=== PATIENT | male | born 1985 | race African-American/Black ===

== ENCOUNTER 2016-09-18 11:46 | Inpatient (IN) | payer MEDICAID, OTHER ==
[~2016-09-18] VITALS: Ht 175.3 cm; Wt 88.9 kg
[~2016-09-18 11:46] MED LIST: BUSP10TA23 PO; BUSP5TAB20 PO; NICO14T TD; OLAN10TA22 PO; OLAN10TA6 PO
[2016-09-18] MEDS ORDERED: QUET25TA PO (12:24)
[2016-09-18 12:46] LABS: BASOPHILS % (AUTO) 0.3 % (0.0-2.0); EOSINOPHILS % (AUTO) 1.1 % (1.0-6.0); HEMATOCRIT 39.8 % (41-53); HEMOGLOBIN 13.2 g/dL (13.5-17.5); LYMPHOCYTES # (AUTO) 2.7 K/uL (1.0-4.8); LYMPHOCYTES % (AUTO) 34.4 % (22.0-44.0); MEAN CORPUSCULAR HEMOGLOBIN 28.5 pg (26.0-34.0); MEAN CORPUSCULAR HGB CONC 33.2 G/dL (31.0-37.0); MEAN CORPUSCULAR VOLUME 86 fL (80-100); MONOCYTES # (AUTO) 0.7 K/uL (0.1-1.0); MONOCYTES % (AUTO) 9.2 % (2.0-9.0); NEUTROPHILS # (AUTO) 4.3 K/uL (1.8-7.7); PLATELET COUNT (AUTO) 223 K/uL (150-450); RED BLOOD CELL COUNT(AUTO) 4.64 MIL/uL (4.50-5.90); RED CELL DISTRIBUTION WIDTH 13.9 % (11.5-14.5); WHITE BLOOD COUNT (AUTO) 7.8 K/uL (4.5-11.0)
[2016-09-18 12:50] LABS: ANION GAP 7 mmol/L (8-16); CALCIUM, TOTAL 8.7 mg/dL (8.8-10.5); CARBON DIOXIDE 29 mmol/L (22-29); CHLORIDE 99 mmol/L (98-107); CREATININE 0.93 mg/dL (0.60-1.30); GLOMERULAR FILTR. RATE CALC > 60 mL/min (>60); POTASSIUM 3.8 mmol/L (3.5-5.1); SODIUM SERUM 135 mmol/L (136-145); UREA NITROGEN, BLOOD 9 mg/dL (7-18)
[2016-09-18 12:56] LABS: ALANINE AMINOTRANSFERASE 59 U/L (12-78); ALBUMIN 3.8 g/dL (3.4-5.0); ASPARTATE AMINOTRANSFERASE 103 U/L (15-37); TOTAL PROTEIN, SERUM 7.3 g/dL (6.4-8.2)
[2016-09-18] MEDS ORDERED: LORazepam 2 MG/ML VIAL IM ONE (13:15)
[2016-09-18] MEDS ORDERED: HALOPERIDOL 5 MG TABLET PO PRN (13:30)
[2016-09-18] MEDS ORDERED: INFLUENZA VIRUS VACCINE QVS 2016-17 (3YR+)/PF 60 MCG/0.5 ML SYRINGE IM ONE (18:15)
[2016-09-18 19:19] VITALS: BP 131/73
[2016-09-19 08:52] VITALS: BP 114/70
[2016-09-19] MEDS: LORazepam 2 MG TABLET PO PRN ×2 (09:24→20:23)
[2016-09-19] MEDS ORDERED: OLAN10TA3 PO (10:23)
[2016-09-19] MEDS ORDERED: BACITRACIN 28.4 GM OINTMENT TP PRN (10:30)
[2016-09-19] MEDS ORDERED: ACETAMINOPHEN 325 MG TABLET PO PRN (10:30)
[2016-09-19] MEDS ORDERED: MAG HYDROX/AL HYDROX/SIMETH ES 30 ML SUSPENSION UDCUP PO PRN (10:30)
[2016-09-19] MEDS ORDERED: ONDANSETRON HCL 4 MG TABLET PO PRN (10:30)
[2016-09-19] MEDS ORDERED: CloNIDine HCL 0.1 MG TABLET PO PRN (10:30)
[2016-09-19] MEDS ORDERED: MAGNESIUM HYDROXIDE SUSPENSION 30 ML UDCUP PO PRN (10:30)
[2016-09-19] MEDS ORDERED: PETROLATUM,WHITE 71 GM JELLY TP PRN (10:30)
[2016-09-19] MEDS ORDERED: IBUPROFEN 600 MG TABLET PO PRN (10:30)
[2016-09-19] MEDS ORDERED: LOPERAMIDE HCL 2 MG CAPSULE PO PRN (10:30)
[2016-09-19 16:02] VITALS: BP 112/70
[2016-09-19] MEDS: OLANZapine 10 MG TABLET PO SCH (20:23)
[2016-09-20 01:08] VITALS: BP 115/73
[2016-09-20 09:39] VITALS: BP 123/76
[2016-09-20] MEDS: LORazepam 2 MG TABLET PO PRN (09:49)
[2016-09-20 16:30] VITALS: BP 131/78
[2016-09-20] MEDS: OLANZapine 10 MG TABLET PO SCH (20:01)
[2016-09-21 06:59] VITALS: BP 123/69
[2016-09-21 08:01] VITALS: BP 126/69
[2016-09-21] MEDS: LORazepam 2 MG TABLET PO PRN (08:33)
[2016-09-21] MEDS ORDERED: LORazepam 2 MG/ML VIAL IM ONE (14:45)
[2016-09-21 16:01] VITALS: BP 120/71
[2016-09-21] MEDS: OLANZapine 10 MG TABLET PO SCH (20:21)
[2016-09-22 08:19] VITALS: BP 111/63
[2016-09-22] MEDS ORDERED: LORazepam 2 MG/ML VIAL ONE (11:47)
[2016-09-22] MEDS ORDERED: DiphenhydrAMINE HCL 50 MG/ML VIAL IM ONE (12:00)
[2016-09-22] MEDS ORDERED: LORazepam 2 MG/ML VIAL IM ONE (12:00)
[2016-09-22] MEDS ORDERED: HALOPERIDOL LACTATE 5 MG/ML VIAL IM ONE (12:00)
[2016-09-22 13:30] VITALS: BP 128/73
[2016-09-22 16:01] VITALS: BP 121/67
[2016-09-22] MEDS: LORazepam 2 MG TABLET PO PRN (16:21)
[2016-09-22] MEDS: OLANZapine 10 MG TABLET PO SCH (20:18)
[2016-09-23 06:55] VITALS: BP 104/67
[2016-09-23 08:30] VITALS: BP 108/69
[2016-09-23] MEDS: LORazepam 2 MG TABLET PO PRN ×3 (09:09→17:33)
[2016-09-23 16:00] VITALS: BP 110/60
[2016-09-23 17:32] VITALS: BP 116/70
[2016-09-23] MEDS: OLANZapine 10 MG TABLET PO SCH (20:03)
[2016-09-24 06:53] VITALS: BP 111/73
[2016-09-24 08:30] VITALS: BP 105/70
[2016-09-24] MEDS: HALOPERIDOL 5 MG TABLET PO PRN ×2 (11:28→17:03)
[2016-09-24] MEDS: LORazepam 2 MG TABLET PO PRN ×2 (11:28→17:02)
[2016-09-24 16:32] VITALS: BP 124/66
[2016-09-24] MEDS: OLANZapine 10 MG TABLET PO SCH (20:48)
[2016-09-25 01:18] VITALS: BP 120/61
[2016-09-25] MEDS: BENZOCAINE/MENTHOL LOZENGE MM PRN (06:50)
[2016-09-25 08:22] VITALS: BP 111/64
[2016-09-25] MEDS: LORazepam 2 MG TABLET PO PRN (08:44)
[2016-09-25] MEDS: HALOPERIDOL 5 MG TABLET PO PRN (10:24)
[2016-09-25] MEDS ORDERED: LORazepam 2 MG/ML VIAL ONE (10:54)
[2016-09-25] MEDS ORDERED: DiphenhydrAMINE HCL 50 MG/ML VIAL ONE (10:54)
[2016-09-25] MEDS ORDERED: HALOPERIDOL LACTATE 5 MG/ML VIAL ONE (10:54)
[2016-09-25] MEDS ORDERED: DiphenhydrAMINE HCL 50 MG/ML VIAL IM ONE (11:00)
[2016-09-25] MEDS ORDERED: LORazepam 2 MG/ML VIAL IM ONE (11:00)
[2016-09-25] MEDS ORDERED: HALOPERIDOL LACTATE 5 MG/ML VIAL IM ONE (11:00)
[2016-09-25 16:00] VITALS: BP 114/65
[2016-09-25] MEDS: PALIPERIDONE PALMITATE 234 MG/1.5 ML SYRINGE IM SCH (17:31)
[2016-09-25] MEDS: OLANZapine 10 MG TABLET PO SCH (20:10)
[2016-09-26] MEDS: HALOPERIDOL 5 MG TABLET PO PRN ×2 (05:44→13:05)
[2016-09-26] MEDS: LORazepam 2 MG TABLET PO PRN ×3 (05:44→17:07)
[2016-09-26 05:45] VITALS: BP 129/78
[2016-09-26 16:30] VITALS: BP 156/88
[2016-09-26] MEDS: OLANZapine 10 MG TABLET PO SCH (20:08)
[2016-09-27 06:03] VITALS: BP 112/77
[2016-09-27 08:15] VITALS: BP 124/79
[2016-09-27] MEDS: LORazepam 2 MG TABLET PO PRN ×3 (08:17→17:46)
[2016-09-27] MEDS ORDERED: LORazepam 2 MG/ML VIAL ONE (08:26)
[2016-09-27] MEDS ORDERED: DiphenhydrAMINE HCL 50 MG/ML VIAL ONE (08:26)
[2016-09-27] MEDS ORDERED: LORazepam 2 MG/ML VIAL IM ONE (08:30)
[2016-09-27] MEDS ORDERED: DiphenhydrAMINE HCL 50 MG/ML VIAL IM ONE (08:30)
[2016-09-27 16:11] VITALS: BP_SYST 118; BP_DIAS 65; BP_DIAS 68
[2016-09-27] MEDS: OLANZapine 10 MG TABLET PO SCH (20:03)
[2016-09-28 06:35] VITALS: BP 125/77
[2016-09-28 08:50] VITALS: BP 123/71
[2016-09-28] MEDS: LORazepam 2 MG TABLET PO PRN ×2 (09:09→16:05)
[2016-09-28] MEDS: HALOPERIDOL 5 MG TABLET PO PRN ×2 (09:09→16:26)
[2016-09-28 16:00] VITALS: BP 128/85
[2016-09-28] MEDS: OLANZapine 10 MG TABLET PO SCH (20:13)
[2016-09-28] MEDS: ZOLPIDEM TARTRATE 10 MG TABLET PO PRN (21:00)
[2016-09-29 06:51] VITALS: BP 120/77
[2016-09-29 08:04] VITALS: BP 118/74
[2016-09-29] MEDS ORDERED: LORazepam 2 MG/ML VIAL IM ONE (09:00)
[2016-09-29] MEDS ORDERED: DiphenhydrAMINE HCL 50 MG/ML VIAL IM ONE (09:00)
[2016-09-29] MEDS ORDERED: HALOPERIDOL LACTATE 5 MG/ML VIAL IM ONE (09:00)
[2016-09-29] MEDS: LORazepam 2 MG TABLET PO PRN ×2 (09:28→16:24)
[2016-09-29] MEDS: HALOPERIDOL 5 MG TABLET PO PRN (09:29)
[2016-09-29 16:06] VITALS: BP 122/68
[2016-09-29] MEDS: HALOPERIDOL 5 MG TABLET PO SCH (20:06)
[2016-09-29] MEDS: OLANZapine 10 MG TABLET PO SCH (20:06)
[2016-09-30 05:35] VITALS: BP 130/78
[2016-09-30 08:01] VITALS: BP 123/73
[2016-09-30] MEDS: HALOPERIDOL 5 MG TABLET PO PRN ×2 (09:14→14:33)
[2016-09-30] MEDS: LORazepam 2 MG TABLET PO PRN ×3 (09:14→18:33)
[2016-09-30 16:17] VITALS: BP 129/84
[2016-09-30] MEDS: BENZOCAINE/MENTHOL LOZENGE MM PRN (16:49)
[2016-09-30] MEDS: OLANZapine 10 MG TABLET PO SCH (20:06)
[2016-09-30] MEDS: HALOPERIDOL 5 MG TABLET PO SCH (20:06)
[2016-10-01 06:23] VITALS: BP 128/78
[2016-10-01] MEDS: HALOPERIDOL 5 MG TABLET PO PRN (07:57)
[2016-10-01] MEDS: LORazepam 2 MG TABLET PO PRN ×2 (07:57→16:40)
[2016-10-01 08:01] VITALS: BP 122/88
[2016-10-01] MEDS ORDERED: DiphenhydrAMINE HCL 50 MG/ML VIAL IM ONE (10:45)
[2016-10-01] MEDS ORDERED: LORazepam 2 MG/ML VIAL IM ONE (10:45)
[2016-10-01] MEDS ORDERED: HALOPERIDOL LACTATE 5 MG/ML VIAL IM ONE (10:45)
[2016-10-01 16:11] VITALS: BP 126/77
[2016-10-01] MEDS: OLANZapine 10 MG TABLET PO SCH (20:12)
[2016-10-01] MEDS: HALOPERIDOL 5 MG TABLET PO SCH (20:12)
[2016-10-01] MEDS: BENZTROPINE MESYLATE 2 MG TABLET PO SCH (20:12)
[2016-10-02 08:13] VITALS: BP 125/78
[2016-10-02] MEDS: HALOPERIDOL 5 MG TABLET PO PRN ×2 (08:33→12:57)
[2016-10-02] MEDS: LORazepam 2 MG TABLET PO PRN ×3 (08:33→17:02)
[2016-10-02] MEDS ORDERED: HALOPERIDOL LACTATE 5 MG/ML VIAL IM ONE (14:00)
[2016-10-02] MEDS ORDERED: DiphenhydrAMINE HCL 50 MG/ML VIAL IM ONE (14:00)
[2016-10-02] MEDS ORDERED: LORazepam 2 MG/ML VIAL IM ONE (14:00)
[2016-10-02] MEDS ORDERED: TUBERCULIN, PURIFIED PROTEIN DERIVATIVE 5 TU/0.1 ML SYG ID ONE (15:15)
[2016-10-02 16:04] VITALS: BP 109/79
[2016-10-02] MEDS: BENZTROPINE MESYLATE 2 MG TABLET PO SCH (20:16)
[2016-10-02] MEDS: HALOPERIDOL 5 MG TABLET PO SCH (20:16)
[2016-10-02] MEDS: OLANZapine 10 MG TABLET PO SCH (20:16)
[2016-10-03 00:25] VITALS: BP 113/73
[2016-10-03] MEDS: HALOPERIDOL 5 MG TABLET PO PRN (08:03)
[2016-10-03] MEDS: LORazepam 2 MG TABLET PO PRN ×2 (08:04→16:09)
[2016-10-03 08:16] VITALS: BP 111/71
[2016-10-03] MEDS ORDERED: HALOPERIDOL LACTATE 5 MG/ML VIAL ONE (08:41)
[2016-10-03] MEDS ORDERED: LORazepam 2 MG/ML VIAL ONE (08:41)
[2016-10-03] MEDS ORDERED: DiphenhydrAMINE HCL 50 MG/ML VIAL ONE (08:41)
[2016-10-03] MEDS ORDERED: LORazepam 2 MG/ML VIAL IM ONE (08:45)
[2016-10-03] MEDS ORDERED: HALOPERIDOL LACTATE 5 MG/ML VIAL IM ONE (08:45)
[2016-10-03] MEDS ORDERED: DiphenhydrAMINE HCL 50 MG/ML VIAL IM ONE (08:45)
[2016-10-03 16:08] VITALS: BP 128/69
[2016-10-03] MEDS: BENZTROPINE MESYLATE 2 MG TABLET PO SCH (19:46)
[2016-10-03] MEDS: HALOPERIDOL 5 MG TABLET PO SCH (19:46)
[2016-10-03] MEDS: OLANZapine 10 MG TABLET PO SCH (19:46)
[2016-10-04 00:49] VITALS: BP 124/66
[2016-10-04 08:02] VITALS: BP 115/80
[2016-10-04] MEDS: HALOPERIDOL 5 MG TABLET PO PRN ×2 (08:44→13:02)
[2016-10-04] MEDS: LORazepam 2 MG TABLET PO PRN ×2 (08:44→13:02)
[2016-10-04] MEDS: NICOTINE 21 MG/24 HOUR PATCH TD SCH (09:34)
[2016-10-04 16:09] VITALS: BP 128/79
[2016-10-04] MEDS: OLANZapine 10 MG TABLET PO SCH (19:51)
[2016-10-04] MEDS: BENZTROPINE MESYLATE 2 MG TABLET PO SCH (19:51)
[2016-10-04] MEDS: HALOPERIDOL 5 MG TABLET PO SCH (19:51)
[2016-10-05 06:11] VITALS: BP 104/74
[2016-10-05 08:02] VITALS: BP 129/62
[2016-10-05] MEDS: LORazepam 2 MG TABLET PO PRN ×2 (09:38→17:18)
[2016-10-05] MEDS: NICOTINE 21 MG/24 HOUR PATCH TD SCH (09:39)
[2016-10-05] MEDS: HALOPERIDOL 5 MG TABLET PO PRN (11:18)
[2016-10-05 16:00] VITALS: BP 123/78
[2016-10-05] MEDS: OLANZapine 10 MG TABLET PO SCH (20:20)
[2016-10-05] MEDS: HALOPERIDOL 5 MG TABLET PO SCH (20:21)
[2016-10-05] MEDS: BENZTROPINE MESYLATE 2 MG TABLET PO SCH (20:21)
[2016-10-06 08:02] VITALS: BP 135/56
[2016-10-06] MEDS: NICOTINE 21 MG/24 HOUR PATCH TD SCH (08:15)
[2016-10-06] MEDS: HALOPERIDOL 5 MG TABLET PO PRN (08:15)
[2016-10-06] MEDS: LORazepam 2 MG TABLET PO PRN ×2 (08:15→16:45)
[2016-10-06 16:01] VITALS: BP 119/67
[2016-10-06] MEDS: HALOPERIDOL 5 MG TABLET PO SCH (20:01)
[2016-10-06] MEDS: BENZTROPINE MESYLATE 2 MG TABLET PO SCH (20:01)
[2016-10-06] MEDS: OLANZapine 10 MG TABLET PO SCH (20:01)
[2016-10-07 08:02] VITALS: BP 125/67
[2016-10-07] MEDS: HALOPERIDOL 5 MG TABLET PO PRN ×2 (08:51→15:19)
[2016-10-07] MEDS: NICOTINE 21 MG/24 HOUR PATCH TD SCH (08:51)
[2016-10-07] MEDS: LORazepam 2 MG TABLET PO PRN ×3 (08:51→20:08)
[2016-10-07 16:01] VITALS: BP 130/81
[2016-10-07] MEDS: OLANZapine 10 MG TABLET PO SCH (20:07)
[2016-10-07] MEDS: BENZTROPINE MESYLATE 2 MG TABLET PO SCH (20:07)
[2016-10-07] MEDS: HALOPERIDOL 5 MG TABLET PO SCH (20:08)
[2016-10-08 07:03] VITALS: BP 126/80
[2016-10-08 08:01] VITALS: BP 133/63
[2016-10-08] MEDS: LORazepam 2 MG TABLET PO PRN ×2 (08:47→14:40)
[2016-10-08] MEDS ORDERED: LORazepam 2 MG/ML VIAL IM ONE (09:15)
[2016-10-08] MEDS ORDERED: HALOPERIDOL LACTATE 5 MG/ML VIAL IM ONE (09:15)
[2016-10-08] MEDS: NICOTINE 21 MG/24 HOUR PATCH TD SCH (09:23)
[2016-10-08 16:01] VITALS: BP 129/71
[2016-10-08] MEDS: OLANZapine 10 MG TABLET PO SCH (20:21)
[2016-10-08] MEDS: HALOPERIDOL 5 MG TABLET PO SCH (20:21)
[2016-10-08] MEDS: BENZTROPINE MESYLATE 2 MG TABLET PO SCH (20:37)
[2016-10-09 07:02] VITALS: BP 125/80
[2016-10-09 08:13] VITALS: BP 119/79
[2016-10-09] MEDS: LORazepam 2 MG TABLET PO PRN ×2 (09:44→17:12)
[2016-10-09] MEDS: NICOTINE 21 MG/24 HOUR PATCH TD SCH (09:44)
[2016-10-09 16:05] VITALS: BP 131/72
[2016-10-09] MEDS: OLANZapine 10 MG TABLET PO SCH (20:15)
[2016-10-09] MEDS: BENZTROPINE MESYLATE 2 MG TABLET PO SCH (20:15)
[2016-10-09] MEDS: HALOPERIDOL 10 MG TABLET PO SCH (20:15)
[2016-10-10 07:00] VITALS: BP 126/75
[2016-10-10 08:02] VITALS: BP 136/80
[2016-10-10] MEDS: NICOTINE 21 MG/24 HOUR PATCH TD SCH (09:46)
[2016-10-10] MEDS: LORazepam 2 MG TABLET PO PRN ×2 (12:13→17:12)
[2016-10-10 16:01] VITALS: BP 119/70
[2016-10-10] MEDS: BENZTROPINE MESYLATE 2 MG TABLET PO SCH (20:07)
[2016-10-10] MEDS: OLANZapine 10 MG TABLET PO SCH (20:07)
[2016-10-10] MEDS: HALOPERIDOL 10 MG TABLET PO SCH (20:07)
[2016-10-11 06:20] VITALS: BP 120/77
[2016-10-11 08:02] VITALS: BP 133/57
[2016-10-11] MEDS: LORazepam 2 MG TABLET PO PRN ×2 (09:49→17:03)
[2016-10-11] MEDS: NICOTINE 21 MG/24 HOUR PATCH TD SCH (09:50)
[2016-10-11 16:18] VITALS: BP 116/71
[2016-10-11] MEDS: BENZTROPINE MESYLATE 2 MG TABLET PO SCH (20:00)
[2016-10-11] MEDS: HALOPERIDOL 10 MG TABLET PO SCH (20:00)
[2016-10-11] MEDS: OLANZapine 10 MG TABLET PO SCH (20:00)
[2016-10-12 07:01] VITALS: BP 115/72
[2016-10-12] MEDS: NICOTINE 21 MG/24 HOUR PATCH TD SCH (09:00)
[2016-10-12 10:14] VITALS: BP 125/77
[2016-10-12 16:00] VITALS: BP 136/80
[2016-10-12] MEDS: LORazepam 2 MG TABLET PO PRN (16:31)
[2016-10-12] MEDS: BENZTROPINE MESYLATE 2 MG TABLET PO SCH (20:01)
[2016-10-12] MEDS: HALOPERIDOL 10 MG TABLET PO SCH (20:01)
[2016-10-12] MEDS: OLANZapine 10 MG TABLET PO SCH (20:02)
[2016-10-13 06:54] VITALS: BP 131/77
[2016-10-13 08:01] VITALS: BP 124/77
[2016-10-13] MEDS: HALOPERIDOL 5 MG TABLET PO PRN ×2 (08:38→13:57)
[2016-10-13] MEDS: LORazepam 2 MG TABLET PO PRN ×3 (08:38→16:11)
[2016-10-13] MEDS: NICOTINE 21 MG/24 HOUR PATCH TD SCH (08:38)
[2016-10-13 16:08] VITALS: BP 125/79
[2016-10-13] MEDS: HALOPERIDOL 10 MG TABLET PO SCH (20:04)
[2016-10-13] MEDS: BENZTROPINE MESYLATE 2 MG TABLET PO SCH (20:04)
[2016-10-13] MEDS: OLANZapine 10 MG TABLET PO SCH (20:04)
[2016-10-14 06:49] VITALS: BP 122/73
[2016-10-14 08:01] VITALS: BP 132/76
[2016-10-14] MEDS: LORazepam 2 MG TABLET PO PRN ×3 (09:38→17:57)
[2016-10-14] MEDS: HALOPERIDOL 5 MG TABLET PO PRN ×3 (09:38→17:57)
[2016-10-14] MEDS: NICOTINE 21 MG/24 HOUR PATCH TD SCH (09:39)
[2016-10-14] MEDS ORDERED: LORazepam 2 MG/ML VIAL IM ONE (13:15)
[2016-10-14] MEDS ORDERED: DiphenhydrAMINE HCL 50 MG/ML VIAL IM ONE (13:15)
[2016-10-14 16:00] VITALS: BP 130/78
[2016-10-14] MEDS: HALOPERIDOL 10 MG TABLET PO SCH (21:07)
[2016-10-14] MEDS: BENZTROPINE MESYLATE 2 MG TABLET PO SCH (21:07)
[2016-10-14] MEDS: OLANZapine 10 MG TABLET PO SCH (21:07)
[2016-10-15 08:02] VITALS: BP 123/63
[2016-10-15] MEDS: NICOTINE 21 MG/24 HOUR PATCH TD SCH (09:06)
[2016-10-15] MEDS: LORazepam 2 MG TABLET PO PRN ×2 (14:16→18:37)
[2016-10-15] MEDS: HALOPERIDOL 5 MG TABLET PO PRN (14:16)
[2016-10-15 16:01] VITALS: BP 124/83
[2016-10-15] MEDS: BENZTROPINE MESYLATE 2 MG TABLET PO SCH (20:32)
[2016-10-15] MEDS: OLANZapine 10 MG TABLET PO SCH (20:32)
[2016-10-15] MEDS: HALOPERIDOL 10 MG TABLET PO SCH (20:32)
[2016-10-16] MEDS: NICOTINE 21 MG/24 HOUR PATCH TD SCH (09:22)
[2016-10-16] MEDS: HALOPERIDOL 5 MG TABLET PO PRN (09:43)
[2016-10-16] MEDS: LORazepam 2 MG TABLET PO PRN ×2 (09:43→15:59)
[2016-10-16 16:01] VITALS: BP 118/71
[2016-10-16] MEDS: ZOLPIDEM TARTRATE 10 MG TABLET PO PRN (20:22)
[2016-10-16] MEDS: OLANZapine 10 MG TABLET PO SCH (20:22)
[2016-10-16] MEDS: HALOPERIDOL 10 MG TABLET PO SCH (20:22)
[2016-10-16] MEDS: BENZTROPINE MESYLATE 2 MG TABLET PO SCH (20:22)
[2016-10-17 08:34] VITALS: BP 129/78
[2016-10-17] MEDS: NICOTINE 21 MG/24 HOUR PATCH TD SCH (09:00)
[2016-10-17] MEDS: LORazepam 2 MG TABLET PO PRN ×2 (10:16→18:22)
[2016-10-17 16:00] VITALS: BP 118/73
[2016-10-17] MEDS: HALOPERIDOL 10 MG TABLET PO SCH (20:23)
[2016-10-17] MEDS: ZOLPIDEM TARTRATE 10 MG TABLET PO PRN (20:23)
[2016-10-17] MEDS: OLANZapine 10 MG TABLET PO SCH (20:23)
[2016-10-17] MEDS: BENZTROPINE MESYLATE 2 MG TABLET PO SCH (20:23)
[2016-10-18 06:56] VITALS: BP 113/79
[2016-10-18 08:02] VITALS: BP 120/64
[2016-10-18] MEDS: NICOTINE 21 MG/24 HOUR PATCH TD SCH (09:28)
[2016-10-18] MEDS: LORazepam 2 MG TABLET PO PRN ×2 (09:28→16:08)
[2016-10-18 16:23] VITALS: BP 131/84
[2016-10-18] MEDS: BENZTROPINE MESYLATE 2 MG TABLET PO SCH (20:08)
[2016-10-18] MEDS: HALOPERIDOL 10 MG TABLET PO SCH (20:08)
[2016-10-18] MEDS: ZOLPIDEM TARTRATE 10 MG TABLET PO PRN (20:08)
[2016-10-18] MEDS: OLANZapine 10 MG TABLET PO SCH (20:08)
[2016-10-19 06:53] VITALS: BP 121/76
[2016-10-19 08:02] VITALS: BP 135/80
[2016-10-19] MEDS: NICOTINE 21 MG/24 HOUR PATCH TD SCH (09:32)
[2016-10-19] MEDS: LORazepam 2 MG TABLET PO PRN ×2 (09:47→16:46)
[2016-10-19 16:00] VITALS: BP 123/71
[2016-10-19] MEDS: HALOPERIDOL 10 MG TABLET PO SCH (20:11)
[2016-10-19] MEDS: BENZTROPINE MESYLATE 2 MG TABLET PO SCH (20:11)
[2016-10-19] MEDS: OLANZapine 10 MG TABLET PO SCH (20:11)
[2016-10-20 07:10] VITALS: BP 124/68
[2016-10-20 08:02] VITALS: BP 123/71
[2016-10-20] MEDS: NICOTINE 21 MG/24 HOUR PATCH TD SCH (09:04)
[2016-10-20] MEDS: LORazepam 2 MG TABLET PO PRN ×3 (11:15→20:22)
[2016-10-20 16:01] VITALS: BP 118/74
[2016-10-20] MEDS: OLANZapine 10 MG TABLET PO SCH (20:22)
[2016-10-20] MEDS: HALOPERIDOL 10 MG TABLET PO SCH (20:22)
[2016-10-20] MEDS: BENZTROPINE MESYLATE 2 MG TABLET PO SCH (20:22)
[2016-10-20] MEDS: ZOLPIDEM TARTRATE 10 MG TABLET PO PRN (20:22)
[2016-10-21 04:05] VITALS: BP 120/73
[2016-10-21 08:02] VITALS: BP 117/61
[2016-10-21] MEDS: NICOTINE 21 MG/24 HOUR PATCH TD SCH (08:39)
[2016-10-21] MEDS: LORazepam 2 MG TABLET PO PRN ×3 (08:39→20:32)
[2016-10-21 16:01] VITALS: BP 133/82
[2016-10-21] MEDS: HALOPERIDOL 5 MG TABLET PO PRN (16:16)
[2016-10-21] MEDS: HALOPERIDOL 10 MG TABLET PO SCH (20:32)
[2016-10-21] MEDS: OLANZapine 10 MG TABLET PO SCH (20:32)
[2016-10-21] MEDS: ZOLPIDEM TARTRATE 10 MG TABLET PO PRN (20:32)
[2016-10-21] MEDS: BENZTROPINE MESYLATE 2 MG TABLET PO SCH (20:32)
[2016-10-22 08:13] VITALS: BP 113/66
[2016-10-22] MEDS: NICOTINE 21 MG/24 HOUR PATCH TD SCH (09:26)
[2016-10-22] MEDS: HALOPERIDOL 5 MG TABLET PO PRN (14:37)
[2016-10-22 16:02] VITALS: BP 140/89
[2016-10-22] MEDS: LORazepam 2 MG TABLET PO PRN (17:15)
[2016-10-22] MEDS: OLANZapine 10 MG TABLET PO SCH (20:14)
[2016-10-22] MEDS: BENZTROPINE MESYLATE 2 MG TABLET PO SCH (20:14)
[2016-10-22] MEDS: HALOPERIDOL 10 MG TABLET PO SCH (20:14)
[2016-10-22] MEDS: ZOLPIDEM TARTRATE 10 MG TABLET PO PRN (20:38)
[2016-10-23 08:28] VITALS: BP 118/61
[2016-10-23] MEDS: NICOTINE 21 MG/24 HOUR PATCH TD SCH (09:56)
[2016-10-23] MEDS: PALIPERIDONE PALMITATE 234 MG/1.5 ML SYRINGE IM SCH (09:56)
[2016-10-23] MEDS: LORazepam 2 MG TABLET PO PRN ×3 (11:35→20:46)
[2016-10-23] MEDS: HALOPERIDOL 5 MG TABLET PO PRN ×2 (11:35→16:46)
[2016-10-23 16:19] VITALS: BP 137/86
[2016-10-23] MEDS: OLANZapine 10 MG TABLET PO SCH (20:46)
[2016-10-23] MEDS: BENZTROPINE MESYLATE 2 MG TABLET PO SCH (20:46)
[2016-10-23] MEDS: ZOLPIDEM TARTRATE 10 MG TABLET PO PRN (20:46)
[2016-10-23] MEDS: HALOPERIDOL 10 MG TABLET PO SCH (20:46)
[2016-10-24 02:23] VITALS: BP 126/79
[2016-10-24] MEDS: NICOTINE 21 MG/24 HOUR PATCH TD SCH (08:16)
[2016-10-24 08:27] VITALS: BP 114/67
[2016-10-24] MEDS: LORazepam 2 MG TABLET PO PRN ×3 (10:45→20:22)
[2016-10-24] MEDS: HALOPERIDOL 5 MG TABLET PO PRN ×2 (10:45→15:10)
[2016-10-24 16:04] VITALS: BP 124/71
[2016-10-24] MEDS: ZOLPIDEM TARTRATE 10 MG TABLET PO PRN (20:22)
[2016-10-24] MEDS: HALOPERIDOL 10 MG TABLET PO SCH (20:22)
[2016-10-24] MEDS: OLANZapine 10 MG TABLET PO SCH (20:22)
[2016-10-24] MEDS: BENZTROPINE MESYLATE 2 MG TABLET PO SCH (20:22)
[2016-10-25 06:13] VITALS: BP 128/78
[2016-10-25] MEDS: LORazepam 2 MG TABLET PO PRN ×2 (09:11→14:44)
[2016-10-25] MEDS: NICOTINE 21 MG/24 HOUR PATCH TD SCH (09:11)
[2016-10-25] MEDS: HALOPERIDOL 5 MG TABLET PO PRN (14:44)
[2016-10-25] MEDS: OLANZapine 10 MG TABLET PO SCH (21:00)
[2016-10-25] MEDS: HALOPERIDOL 10 MG TABLET PO SCH (21:00)
[2016-10-25] MEDS: BENZTROPINE MESYLATE 2 MG TABLET PO SCH (21:00)
[2016-10-26] MEDS: NICOTINE 21 MG/24 HOUR PATCH TD SCH (09:00)
[2016-10-26] MEDS: OLANZapine 10 MG TABLET PO SCH (21:00)
[2016-10-26] MEDS: HALOPERIDOL 10 MG TABLET PO SCH (21:00)
[2016-10-26] MEDS: BENZTROPINE MESYLATE 2 MG TABLET PO SCH (21:00)
[2016-10-27 06:57] VITALS: BP 130/61
[2016-10-27 08:05] VITALS: BP 133/78
[2016-10-27] MEDS: NICOTINE 21 MG/24 HOUR PATCH TD SCH (09:00)
[2016-10-27] MEDS: LORazepam 2 MG TABLET PO PRN ×2 (11:48→15:57)
[2016-10-27 16:00] VITALS: BP 147/76
[2016-10-27] MEDS: ALBUTEROL SULFATE HFA 90 MCG/PUFF 8 GM INHALER IH PRN (16:07)
[2016-10-27] MEDS: BENZTROPINE MESYLATE 2 MG TABLET PO SCH (20:04)
[2016-10-27] MEDS: OLANZapine 10 MG TABLET PO SCH (20:04)
[2016-10-27] MEDS: HALOPERIDOL 10 MG TABLET PO SCH (20:04)
[2016-10-27] MEDS: ZOLPIDEM TARTRATE 10 MG TABLET PO PRN (21:00)
[2016-10-28 08:02] VITALS: BP 111/66
[2016-10-28] MEDS: NICOTINE 21 MG/24 HOUR PATCH TD SCH (09:27)
[2016-10-28] MEDS: LORazepam 2 MG TABLET PO PRN ×3 (10:33→20:26)
[2016-10-28 16:14] VITALS: BP 150/92
[2016-10-28] MEDS: HALOPERIDOL 5 MG TABLET PO PRN (16:25)
[2016-10-28] MEDS: HALOPERIDOL 10 MG TABLET PO SCH (20:26)
[2016-10-28] MEDS: OLANZapine 10 MG TABLET PO SCH (20:26)
[2016-10-28] MEDS: BENZTROPINE MESYLATE 2 MG TABLET PO SCH (20:26)
[2016-10-28] MEDS: ZOLPIDEM TARTRATE 10 MG TABLET PO PRN (20:26)
[2016-10-29 08:02] VITALS: BP 127/70
[2016-10-29] MEDS: NICOTINE 21 MG/24 HOUR PATCH TD SCH (08:41)
[2016-10-29] MEDS: LORazepam 2 MG TABLET PO PRN ×2 (10:27→17:42)
[2016-10-29 16:07] VITALS: BP 131/75
[2016-10-29] MEDS: HALOPERIDOL 5 MG TABLET PO PRN (17:42)
[2016-10-29] MEDS: HALOPERIDOL 10 MG TABLET PO SCH (20:21)
[2016-10-29] MEDS: BENZTROPINE MESYLATE 2 MG TABLET PO SCH (20:21)
[2016-10-29] MEDS: OLANZapine 10 MG TABLET PO SCH (20:21)
[2016-10-29] MEDS: ZOLPIDEM TARTRATE 10 MG TABLET PO PRN (20:21)
[2016-10-30 08:02] VITALS: BP 130/79
[2016-10-30] MEDS: NICOTINE 21 MG/24 HOUR PATCH TD SCH (09:00)
[2016-10-30] MEDS: LORazepam 2 MG TABLET PO PRN ×2 (09:50→16:40)
[2016-10-30 16:05] VITALS: BP 123/65
[2016-10-30] MEDS: HALOPERIDOL 5 MG TABLET PO PRN (16:40)
[2016-10-30] MEDS: HALOPERIDOL 10 MG TABLET PO SCH (20:17)
[2016-10-30] MEDS: ZOLPIDEM TARTRATE 10 MG TABLET PO PRN (20:18)
[2016-10-30] MEDS: BENZTROPINE MESYLATE 2 MG TABLET PO SCH (20:18)
[2016-10-30] MEDS: OLANZapine 10 MG TABLET PO SCH (20:18)
[2016-10-31 08:02] VITALS: BP 115/64
[2016-10-31] MEDS: NICOTINE 21 MG/24 HOUR PATCH TD SCH (08:39)
[2016-10-31] MEDS: LORazepam 2 MG TABLET PO PRN ×2 (10:47→20:30)
[2016-10-31] MEDS: HALOPERIDOL 5 MG TABLET PO PRN (10:47)
[2016-10-31 16:02] VITALS: BP 133/92
[2016-10-31] MEDS: BENZTROPINE MESYLATE 2 MG TABLET PO SCH (20:30)
[2016-10-31] MEDS: ZOLPIDEM TARTRATE 10 MG TABLET PO PRN (20:30)
[2016-10-31] MEDS: OLANZapine 10 MG TABLET PO SCH (20:30)
[2016-10-31] MEDS: HALOPERIDOL 10 MG TABLET PO SCH (20:30)
[2016-11-01 08:15] VITALS: BP 121/72
[2016-11-01] MEDS: NICOTINE 21 MG/24 HOUR PATCH TD SCH (09:43)
[2016-11-01 16:18] VITALS: BP 136/81
[2016-11-01] MEDS: LORazepam 2 MG TABLET PO PRN (16:27)
[2016-11-01] MEDS: HALOPERIDOL 10 MG TABLET PO SCH (20:22)
[2016-11-01] MEDS: BENZTROPINE MESYLATE 2 MG TABLET PO SCH (20:23)
[2016-11-01] MEDS: ZOLPIDEM TARTRATE 10 MG TABLET PO PRN (20:23)
[2016-11-01] MEDS: OLANZapine 10 MG TABLET PO SCH (20:23)
[2016-11-02 04:25] VITALS: BP 120/72
[2016-11-02] MEDS: NICOTINE 21 MG/24 HOUR PATCH TD SCH (09:55)
[2016-11-02] MEDS: LORazepam 2 MG TABLET PO PRN ×2 (14:57→20:43)
[2016-11-02 16:04] VITALS: BP 119/75
[2016-11-02] MEDS: HALOPERIDOL 10 MG TABLET PO SCH (20:39)
[2016-11-02] MEDS: BENZTROPINE MESYLATE 2 MG TABLET PO SCH (20:40)
[2016-11-02] MEDS: OLANZapine 10 MG TABLET PO SCH (20:40)
[2016-11-02] MEDS: ZOLPIDEM TARTRATE 10 MG TABLET PO PRN (20:43)
[2016-11-03 08:02] VITALS: BP 127/70
[2016-11-03] MEDS: NICOTINE 21 MG/24 HOUR PATCH TD SCH (09:00)
[2016-11-03] MEDS: LORazepam 2 MG TABLET PO PRN ×2 (11:02→16:54)
[2016-11-03 16:00] VITALS: BP 127/69
[2016-11-03] MEDS: HALOPERIDOL 5 MG TABLET PO PRN (16:55)
[2016-11-03] MEDS: BENZTROPINE MESYLATE 2 MG TABLET PO SCH (20:41)
[2016-11-03] MEDS: HALOPERIDOL 10 MG TABLET PO SCH (20:41)
[2016-11-03] MEDS: OLANZapine 10 MG TABLET PO SCH (20:41)
[2016-11-03] MEDS: ZOLPIDEM TARTRATE 10 MG TABLET PO PRN (20:41)
[2016-11-04 06:29] VITALS: BP 124/86
[2016-11-04 08:01] VITALS: BP 128/80
[2016-11-04] MEDS: NICOTINE 21 MG/24 HOUR PATCH TD SCH (08:04)
[2016-11-04] MEDS: HALOPERIDOL 5 MG TABLET PO PRN ×2 (12:01→16:27)
[2016-11-04] MEDS: LORazepam 2 MG TABLET PO PRN ×3 (12:01→20:31)
[2016-11-04 16:16] VITALS: BP 140/95
[2016-11-04] MEDS: ZOLPIDEM TARTRATE 10 MG TABLET PO PRN (20:31)
[2016-11-04] MEDS: HALOPERIDOL 10 MG TABLET PO SCH (20:31)
[2016-11-04] MEDS: OLANZapine 10 MG TABLET PO SCH (20:31)
[2016-11-04] MEDS: BENZTROPINE MESYLATE 2 MG TABLET PO SCH (20:31)
[2016-11-05 06:17] VITALS: BP 122/87
[2016-11-05 08:34] VITALS: BP 102/64
[2016-11-05] MEDS: NICOTINE 21 MG/24 HOUR PATCH TD SCH (09:00)
[2016-11-05] MEDS: HALOPERIDOL 5 MG TABLET PO PRN ×2 (09:45→17:27)
[2016-11-05] MEDS: LORazepam 2 MG TABLET PO PRN ×2 (09:45→17:27)
[2016-11-05 16:04] VITALS: BP 111/66
[2016-11-05] MEDS: BENZTROPINE MESYLATE 2 MG TABLET PO SCH (20:14)
[2016-11-05] MEDS: OLANZapine 10 MG TABLET PO SCH (20:14)
[2016-11-05] MEDS: HALOPERIDOL 10 MG TABLET PO SCH (20:14)
[2016-11-06 06:34] VITALS: BP 105/60
[2016-11-06 08:02] VITALS: BP 118/62
[2016-11-06] MEDS: NICOTINE 21 MG/24 HOUR PATCH TD SCH (09:00)
[2016-11-06] MEDS: HALOPERIDOL 5 MG TABLET PO PRN ×2 (09:15→14:15)
[2016-11-06] MEDS: LORazepam 2 MG TABLET PO PRN ×3 (09:15→20:34)
[2016-11-06 16:03] VITALS: BP 125/67
[2016-11-06] MEDS: ZOLPIDEM TARTRATE 10 MG TABLET PO PRN (20:34)
[2016-11-06] MEDS: OLANZapine 10 MG TABLET PO SCH (20:34)
[2016-11-06] MEDS: HALOPERIDOL 10 MG TABLET PO SCH (20:34)
[2016-11-06] MEDS: BENZTROPINE MESYLATE 2 MG TABLET PO SCH (20:34)
[2016-11-07 01:10] VITALS: BP 128/67
[2016-11-07 08:01] VITALS: BP 133/60
[2016-11-07] MEDS: NICOTINE 21 MG/24 HOUR PATCH TD SCH (09:00)
[2016-11-07] MEDS: LORazepam 2 MG TABLET PO PRN ×2 (12:48→16:58)
[2016-11-07] MEDS: HALOPERIDOL 5 MG TABLET PO PRN ×2 (12:48→17:03)
[2016-11-07 16:18] VITALS: BP 133/81
[2016-11-07] MEDS: ALBUTEROL SULFATE HFA 90 MCG/PUFF 8 GM INHALER IH PRN (17:38)
[2016-11-07] MEDS: BENZTROPINE MESYLATE 2 MG TABLET PO SCH (20:35)
[2016-11-07] MEDS: HALOPERIDOL 10 MG TABLET PO SCH (20:35)
[2016-11-07] MEDS: OLANZapine 10 MG TABLET PO SCH (20:35)
[2016-11-07] MEDS: ZOLPIDEM TARTRATE 10 MG TABLET PO PRN (20:35)
[2016-11-08 08:02] VITALS: BP 131/79
[2016-11-08] MEDS: NICOTINE 21 MG/24 HOUR PATCH TD SCH (09:00)
[2016-11-08 16:12] VITALS: BP 129/75
[2016-11-08] MEDS: LORazepam 2 MG TABLET PO PRN (17:26)
[2016-11-08] MEDS: HALOPERIDOL 5 MG TABLET PO PRN (17:26)
[2016-11-08] MEDS: BENZTROPINE MESYLATE 2 MG TABLET PO SCH (20:17)
[2016-11-08] MEDS: HALOPERIDOL 10 MG TABLET PO SCH (20:17)
[2016-11-08] MEDS: ZOLPIDEM TARTRATE 10 MG TABLET PO PRN (20:17)
[2016-11-08] MEDS: OLANZapine 10 MG TABLET PO SCH (20:17)
[2016-11-08] MEDS: ALBUTEROL SULFATE HFA 90 MCG/PUFF 8 GM INHALER IH PRN (20:57)
[2016-11-09 00:39] VITALS: BP 122/79
[2016-11-09 08:02] VITALS: BP 104/59
[2016-11-09] MEDS: NICOTINE 21 MG/24 HOUR PATCH TD SCH (09:00)
[2016-11-09] MEDS: HALOPERIDOL 5 MG TABLET PO PRN ×2 (12:33→17:30)
[2016-11-09] MEDS: LORazepam 2 MG TABLET PO PRN ×2 (12:33→17:30)
[2016-11-09] MEDS: ALBUTEROL SULFATE HFA 90 MCG/PUFF 8 GM INHALER IH PRN (12:34)
[2016-11-09 16:19] VITALS: BP 130/90
[2016-11-09] MEDS: OLANZapine 10 MG TABLET PO SCH (20:21)
[2016-11-09] MEDS: BENZTROPINE MESYLATE 2 MG TABLET PO SCH (20:21)
[2016-11-09] MEDS: HALOPERIDOL 10 MG TABLET PO SCH (20:21)
[2016-11-09] MEDS: ZOLPIDEM TARTRATE 10 MG TABLET PO PRN (21:56)
[2016-11-10 00:03] VITALS: BP 107/60
[2016-11-10 08:02] VITALS: BP 128/76
[2016-11-10] MEDS: NICOTINE 21 MG/24 HOUR PATCH TD SCH (09:00)
[2016-11-10] MEDS: LORazepam 2 MG TABLET PO PRN ×2 (12:42→16:43)
[2016-11-10] MEDS: HALOPERIDOL 5 MG TABLET PO PRN ×2 (12:43→16:43)
[2016-11-10] MEDS: ALBUTEROL SULFATE HFA 90 MCG/PUFF 8 GM INHALER IH PRN (13:36)
[2016-11-10 16:02] VITALS: BP 138/86
[2016-11-10] MEDS: HALOPERIDOL 10 MG TABLET PO SCH (20:51)
[2016-11-10] MEDS: BENZTROPINE MESYLATE 2 MG TABLET PO SCH (20:51)
[2016-11-10] MEDS: OLANZapine 10 MG TABLET PO SCH (20:51)
[2016-11-10] MEDS: ZOLPIDEM TARTRATE 10 MG TABLET PO PRN (20:51)
[2016-11-11 04:26] VITALS: BP 118/62
[2016-11-11 08:02] VITALS: BP 105/78
[2016-11-11] MEDS: NICOTINE 21 MG/24 HOUR PATCH TD SCH (09:00)
[2016-11-11] MEDS: LORazepam 2 MG TABLET PO PRN ×3 (09:18→20:31)
[2016-11-11] MEDS: HALOPERIDOL 5 MG TABLET PO PRN ×2 (09:18→14:04)
[2016-11-11 16:00] VITALS: BP 135/72
[2016-11-11] MEDS: OLANZapine 10 MG TABLET PO SCH (20:30)
[2016-11-11] MEDS: BENZTROPINE MESYLATE 2 MG TABLET PO SCH (20:30)
[2016-11-11] MEDS: ZOLPIDEM TARTRATE 10 MG TABLET PO PRN (20:30)
[2016-11-11] MEDS: HALOPERIDOL 10 MG TABLET PO SCH (20:30)
[2016-11-12 08:19] VITALS: BP 117/69
[2016-11-12] MEDS: NICOTINE 21 MG/24 HOUR PATCH TD SCH (09:00)
[2016-11-12] MEDS: HALOPERIDOL 5 MG TABLET PO PRN ×2 (10:15→14:19)
[2016-11-12] MEDS: LORazepam 2 MG TABLET PO PRN ×2 (10:15→14:19)
[2016-11-12 12:57] VITALS: BP 128/73
[2016-11-12 15:12] VITALS: BP 119/64
[2016-11-12 16:03] VITALS: BP 129/77
[2016-11-12] MEDS: BENZTROPINE MESYLATE 2 MG TABLET PO SCH (20:55)
[2016-11-12] MEDS: HALOPERIDOL 10 MG TABLET PO SCH (20:55)
[2016-11-12] MEDS: OLANZapine 10 MG TABLET PO SCH (20:55)
[2016-11-12] MEDS: ZOLPIDEM TARTRATE 10 MG TABLET PO PRN (21:02)
[2016-11-13 06:30] VITALS: BP 102/61
[2016-11-13 08:02] VITALS: BP 136/83
[2016-11-13] MEDS: NICOTINE 21 MG/24 HOUR PATCH TD SCH (08:46)
[2016-11-13 08:52] LABS: BASOPHILS % (AUTO) 0.6 % (0.0-2.0); EOSINOPHILS % (AUTO) 2.1 % (1.0-6.0); HEMATOCRIT 44.3 % (41-53); HEMOGLOBIN 14.7 g/dL (13.5-17.5); LYMPHOCYTES # (AUTO) 3.6 K/uL (1.0-4.8); LYMPHOCYTES % (AUTO) 49.1 % (22.0-44.0); MEAN CORPUSCULAR HEMOGLOBIN 28.4 pg (26.0-34.0); MEAN CORPUSCULAR HGB CONC 33.2 G/dL (31.0-37.0); MEAN CORPUSCULAR VOLUME 85 fL (80-100); MONOCYTES # (AUTO) 0.6 K/uL (0.1-1.0); MONOCYTES % (AUTO) 7.6 % (2.0-9.0); NEUTROPHILS % (AUTO) 40.6 % (40.0-70.0); PLATELET COUNT (AUTO) 181 K/uL (150-450); RED BLOOD CELL COUNT(AUTO) 5.18 MIL/uL (4.50-5.90); RED CELL DISTRIBUTION WIDTH 13.1 % (11.5-14.5); WHITE BLOOD COUNT (AUTO) 7.3 K/uL (4.5-11.0)
[2016-11-13 09:23] LABS: ALANINE AMINOTRANSFERASE 57 U/L (12-78); ALBUMIN 3.7 g/dL (3.4-5.0); ANION GAP 10 mmol/L (8-16); ASPARTATE AMINOTRANSFERASE 29 U/L (15-37); BILIRUBIN,TOTAL 0.4 mg/dL (0.1-1.0); CALCIUM, TOTAL 8.7 mg/dL (8.8-10.5); CARBON DIOXIDE 25 mmol/L (22-29); CHLORIDE 102 mmol/L (98-107); CREATININE 0.85 mg/dL (0.60-1.30); GLOMERULAR FILTR. RATE CALC > 60 mL/min (>60); PHOSPHORUS 5.5 mg/dL (2.5-4.9); POTASSIUM 4.3 mmol/L (3.5-5.1); SODIUM SERUM 137 mmol/L (136-145); TOTAL PROTEIN, SERUM 7.5 g/dL (6.4-8.2); UREA NITROGEN, BLOOD 14 mg/dL (7-18)
[2016-11-13] MEDS: LORazepam 2 MG TABLET PO PRN ×3 (10:08→21:16)
[2016-11-13] MEDS: HALOPERIDOL 5 MG TABLET PO PRN (13:58)
[2016-11-13] MEDS: ALBUTEROL SULFATE HFA 90 MCG/PUFF 8 GM INHALER IH PRN (14:08)
[2016-11-13 16:35] VITALS: BP 136/69
[2016-11-13] MEDS: HALOPERIDOL 10 MG TABLET PO SCH (21:16)
[2016-11-13] MEDS: ZOLPIDEM TARTRATE 10 MG TABLET PO PRN (21:16)
[2016-11-13] MEDS: BENZTROPINE MESYLATE 2 MG TABLET PO SCH (21:16)
[2016-11-13] MEDS: OLANZapine 10 MG TABLET PO SCH (21:16)
[2016-11-14 06:44] VITALS: BP 130/75
[2016-11-14 08:02] VITALS: BP 131/81
[2016-11-14] MEDS: NICOTINE 21 MG/24 HOUR PATCH TD SCH (09:00)
[2016-11-14] MEDS: HALOPERIDOL 5 MG TABLET PO PRN ×2 (10:34→15:30)
[2016-11-14] MEDS: LORazepam 2 MG TABLET PO PRN ×2 (10:34→15:30)
[2016-11-14 16:05] VITALS: BP 134/78
[2016-11-14] MEDS: OLANZapine 10 MG TABLET PO SCH (20:20)
[2016-11-14] MEDS: HALOPERIDOL 10 MG TABLET PO SCH (20:20)
[2016-11-14] MEDS: BENZTROPINE MESYLATE 2 MG TABLET PO SCH (20:20)
[2016-11-14] MEDS: ZOLPIDEM TARTRATE 10 MG TABLET PO PRN (21:00)
[2016-11-15 07:00] VITALS: BP 126/77
[2016-11-15 08:26] VITALS: BP 124/68
[2016-11-15] MEDS: NICOTINE 21 MG/24 HOUR PATCH TD SCH (08:31)
[2016-11-15] MEDS: LORazepam 2 MG TABLET PO PRN ×2 (08:57→16:26)
[2016-11-15] MEDS: HALOPERIDOL 5 MG TABLET PO PRN ×2 (08:57→16:26)
[2016-11-15 16:00] VITALS: BP 116/64
[2016-11-15] MEDS: ALBUTEROL SULFATE HFA 90 MCG/PUFF 8 GM INHALER IH PRN (16:27)
[2016-11-15] MEDS: HALOPERIDOL 10 MG TABLET PO SCH (21:06)
[2016-11-15] MEDS: OLANZapine 10 MG TABLET PO SCH (21:06)
[2016-11-15] MEDS: ZOLPIDEM TARTRATE 10 MG TABLET PO PRN (21:07)
[2016-11-15] MEDS: BENZTROPINE MESYLATE 2 MG TABLET PO SCH (21:07)
[2016-11-16 08:01] VITALS: BP 105/65
[2016-11-16] MEDS: HALOPERIDOL 5 MG TABLET PO PRN ×2 (08:36→16:23)
[2016-11-16] MEDS: LORazepam 2 MG TABLET PO PRN ×2 (08:36→16:23)
[2016-11-16] MEDS: NICOTINE 21 MG/24 HOUR PATCH TD SCH (09:00)
[2016-11-16 16:05] VITALS: BP 126/69
[2016-11-16] MEDS: OLANZapine 10 MG TABLET PO SCH (20:13)
[2016-11-16] MEDS: HALOPERIDOL 10 MG TABLET PO SCH (20:13)
[2016-11-16] MEDS: BENZTROPINE MESYLATE 2 MG TABLET PO SCH (20:13)
[2016-11-16] MEDS: ZOLPIDEM TARTRATE 10 MG TABLET PO PRN (20:30)
[2016-11-17 08:21] VITALS: BP 116/64
[2016-11-17] MEDS: LORazepam 2 MG TABLET PO PRN ×2 (12:34→16:37)
[2016-11-17] MEDS: HALOPERIDOL 5 MG TABLET PO PRN ×2 (12:34→16:38)
[2016-11-17] MEDS: ALBUTEROL SULFATE HFA 90 MCG/PUFF 8 GM INHALER IH PRN (14:11)
[2016-11-17 16:00] VITALS: BP 138/90
[2016-11-17] MEDS: BENZTROPINE MESYLATE 2 MG TABLET PO SCH (20:12)
[2016-11-17] MEDS: OLANZapine 10 MG TABLET PO SCH (20:12)
[2016-11-17] MEDS: HALOPERIDOL 10 MG TABLET PO SCH (20:12)
[2016-11-17] MEDS: ZOLPIDEM TARTRATE 10 MG TABLET PO PRN (20:14)
[2016-11-18 08:02] VITALS: BP 105/71
[2016-11-18] MEDS: LORazepam 2 MG TABLET PO PRN (14:28)
[2016-11-18] MEDS: HALOPERIDOL 5 MG TABLET PO PRN (14:28)
[2016-11-18 16:00] VITALS: BP 142/88
[2016-11-18] MEDS: ZOLPIDEM TARTRATE 10 MG TABLET PO PRN (20:26)
[2016-11-18] MEDS: BENZTROPINE MESYLATE 2 MG TABLET PO SCH (20:26)
[2016-11-18] MEDS: HALOPERIDOL 10 MG TABLET PO SCH (20:26)
[2016-11-18] MEDS: OLANZapine 10 MG TABLET PO SCH (20:26)
[2016-11-19 08:02] VITALS: BP 109/61
[2016-11-19] MEDS: LORazepam 2 MG TABLET PO PRN ×2 (11:39→16:05)
[2016-11-19] MEDS: HALOPERIDOL 5 MG TABLET PO PRN ×2 (11:39→16:05)
[2016-11-19 16:00] VITALS: BP 138/70
[2016-11-19] MEDS: HALOPERIDOL 10 MG TABLET PO SCH (20:13)
[2016-11-19] MEDS: BENZTROPINE MESYLATE 2 MG TABLET PO SCH (20:13)
[2016-11-19] MEDS: ZOLPIDEM TARTRATE 10 MG TABLET PO PRN (20:13)
[2016-11-19] MEDS: OLANZapine 10 MG TABLET PO SCH (20:13)
[2016-11-20 06:45] VITALS: BP 113/68
[2016-11-20 08:02] VITALS: BP 120/70
[2016-11-20] MEDS: PALIPERIDONE PALMITATE 234 MG/1.5 ML SYRINGE IM SCH (10:02)
[2016-11-20] MEDS: LORazepam 2 MG TABLET PO PRN ×3 (10:49→20:26)
[2016-11-20] MEDS: HALOPERIDOL 5 MG TABLET PO PRN ×2 (10:50→16:12)
[2016-11-20 16:02] VITALS: BP 118/65
[2016-11-20] MEDS: HALOPERIDOL 10 MG TABLET PO SCH (20:25)
[2016-11-20] MEDS: OLANZapine 10 MG TABLET PO SCH (20:25)
[2016-11-20] MEDS: BENZTROPINE MESYLATE 2 MG TABLET PO SCH (20:25)
[2016-11-20] MEDS: ZOLPIDEM TARTRATE 10 MG TABLET PO PRN (20:26)
[2016-11-21 06:47] VITALS: BP 115/66
[2016-11-21 08:02] VITALS: BP 107/68
[2016-11-21] MEDS: LORazepam 2 MG TABLET PO PRN ×3 (12:23→20:33)
[2016-11-21] MEDS: HALOPERIDOL 5 MG TABLET PO PRN ×2 (12:23→16:23)
[2016-11-21 16:02] VITALS: BP 125/78
[2016-11-21] MEDS: ALBUTEROL SULFATE HFA 90 MCG/PUFF 8 GM INHALER IH PRN (16:23)
[2016-11-21] MEDS: HALOPERIDOL 10 MG TABLET PO SCH (20:33)
[2016-11-21] MEDS: BENZTROPINE MESYLATE 2 MG TABLET PO SCH (20:33)
[2016-11-21] MEDS: ZOLPIDEM TARTRATE 10 MG TABLET PO PRN (20:33)
[2016-11-21] MEDS: OLANZapine 10 MG TABLET PO SCH (20:33)
[2016-11-22 06:11] VITALS: BP 112/74
[2016-11-22 08:02] VITALS: BP 114/78
[2016-11-22] MEDS: HALOPERIDOL 5 MG TABLET PO PRN ×2 (12:37→16:47)
[2016-11-22] MEDS: LORazepam 2 MG TABLET PO PRN ×3 (12:37→20:48)
[2016-11-22 16:00] VITALS: BP 135/83
[2016-11-22] MEDS: ALBUTEROL SULFATE HFA 90 MCG/PUFF 8 GM INHALER IH PRN (16:24)
[2016-11-22] MEDS: OLANZapine 10 MG TABLET PO SCH (20:48)
[2016-11-22] MEDS: HALOPERIDOL 10 MG TABLET PO SCH (20:48)
[2016-11-22] MEDS: BENZTROPINE MESYLATE 2 MG TABLET PO SCH (20:48)
[2016-11-22] MEDS: ZOLPIDEM TARTRATE 10 MG TABLET PO PRN (20:48)
[2016-11-22] MEDS: BENZOCAINE/MENTHOL LOZENGE MM PRN (21:41)
[2016-11-23 06:05] VITALS: BP 129/82
[2016-11-23 08:03] VITALS: BP 111/60
[2016-11-23] MEDS: LORazepam 2 MG TABLET PO PRN ×2 (09:10→16:11)
[2016-11-23] MEDS: HALOPERIDOL 5 MG TABLET PO PRN ×2 (09:10→16:11)
[2016-11-23] MEDS: ALBUTEROL SULFATE HFA 90 MCG/PUFF 8 GM INHALER IH PRN (11:34)
[2016-11-23 16:00] VITALS: BP 135/80
[2016-11-23] MEDS: ZOLPIDEM TARTRATE 10 MG TABLET PO PRN (20:02)
[2016-11-23] MEDS: OLANZapine 10 MG TABLET PO SCH (20:02)
[2016-11-23] MEDS: HALOPERIDOL 10 MG TABLET PO SCH (20:02)
[2016-11-23] MEDS: BENZTROPINE MESYLATE 2 MG TABLET PO SCH (20:26)
[2016-11-24 06:46] VITALS: BP 123/78
[2016-11-24 08:02] VITALS: BP 102/67
[2016-11-24] MEDS: HALOPERIDOL 5 MG TABLET PO PRN ×2 (12:17→16:20)
[2016-11-24] MEDS: LORazepam 2 MG TABLET PO PRN ×3 (12:17→20:34)
[2016-11-24] MEDS: ALBUTEROL SULFATE HFA 90 MCG/PUFF 8 GM INHALER IH PRN (16:22)
[2016-11-24 16:32] VITALS: BP 136/79
[2016-11-24] MEDS: ZOLPIDEM TARTRATE 10 MG TABLET PO PRN (20:32)
[2016-11-24] MEDS: HALOPERIDOL 10 MG TABLET PO SCH (20:32)
[2016-11-24] MEDS: BENZTROPINE MESYLATE 2 MG TABLET PO SCH (20:32)
[2016-11-24] MEDS: OLANZapine 10 MG TABLET PO SCH (20:32)
[2016-11-25 06:06] VITALS: BP 101/67
[2016-11-25 08:35] VITALS: BP 108/69
[2016-11-25] MEDS: HALOPERIDOL 5 MG TABLET PO PRN ×2 (12:50→16:50)
[2016-11-25] MEDS: LORazepam 2 MG TABLET PO PRN ×3 (12:50→20:54)
[2016-11-25 16:00] VITALS: BP 127/75
[2016-11-25] MEDS: ZOLPIDEM TARTRATE 10 MG TABLET PO PRN (20:54)
[2016-11-25] MEDS: HALOPERIDOL 10 MG TABLET PO SCH (20:54)
[2016-11-25] MEDS: BENZTROPINE MESYLATE 2 MG TABLET PO SCH (20:54)
[2016-11-25] MEDS: OLANZapine 10 MG TABLET PO SCH (20:54)
[2016-11-26 07:01] VITALS: BP 122/70
[2016-11-26 08:23] VITALS: BP 109/64
[2016-11-26] MEDS: LORazepam 2 MG TABLET PO PRN ×3 (10:09→20:21)
[2016-11-26] MEDS: HALOPERIDOL 5 MG TABLET PO PRN ×2 (10:09→16:21)
[2016-11-26 16:00] VITALS: BP 126/77
[2016-11-26] MEDS: ZOLPIDEM TARTRATE 10 MG TABLET PO PRN (20:21)
[2016-11-26] MEDS: HALOPERIDOL 10 MG TABLET PO SCH (20:21)
[2016-11-26] MEDS: OLANZapine 10 MG TABLET PO SCH (20:21)
[2016-11-26] MEDS: BENZTROPINE MESYLATE 2 MG TABLET PO SCH (20:21)
[2016-11-27 08:20] VITALS: BP 103/56
[2016-11-27] MEDS: HALOPERIDOL 5 MG TABLET PO PRN ×3 (11:06→19:07)
[2016-11-27] MEDS: LORazepam 2 MG TABLET PO PRN ×3 (11:06→19:07)
[2016-11-27] MEDS: ALBUTEROL SULFATE HFA 90 MCG/PUFF 8 GM INHALER IH PRN (14:06)
[2016-11-27 16:14] VITALS: BP 120/74
[2016-11-27] MEDS: HALOPERIDOL 10 MG TABLET PO SCH (20:13)
[2016-11-27] MEDS: OLANZapine 10 MG TABLET PO SCH (20:13)
[2016-11-27] MEDS: BENZTROPINE MESYLATE 2 MG TABLET PO SCH (20:29)
[2016-11-27] MEDS: ZOLPIDEM TARTRATE 10 MG TABLET PO PRN (21:00)
[2016-11-28 08:13] VITALS: BP 112/68
[2016-11-28] MEDS: HALOPERIDOL 5 MG TABLET PO PRN (13:07)
[2016-11-28] MEDS: LORazepam 2 MG TABLET PO PRN ×2 (13:07→17:07)
[2016-11-28 16:05] VITALS: BP 118/72
[2016-11-28] MEDS: BENZTROPINE MESYLATE 2 MG TABLET PO SCH (20:45)
[2016-11-28] MEDS: OLANZapine 10 MG TABLET PO SCH (20:45)
[2016-11-28] MEDS: HALOPERIDOL 10 MG TABLET PO SCH (20:45)
[2016-11-28] MEDS: ZOLPIDEM TARTRATE 10 MG TABLET PO PRN (21:16)
[2016-11-29 08:12] VITALS: BP 126/69
[2016-11-29] MEDS: LORazepam 2 MG TABLET PO PRN ×2 (11:59→16:14)
[2016-11-29] MEDS: HALOPERIDOL 5 MG TABLET PO PRN (11:59)
[2016-11-29 16:02] VITALS: BP 116/67
[2016-11-29] MEDS: ALBUTEROL SULFATE HFA 90 MCG/PUFF 8 GM INHALER IH PRN (16:14)
[2016-11-29] MEDS: BENZTROPINE MESYLATE 2 MG TABLET PO SCH (20:11)
[2016-11-29] MEDS: OLANZapine 10 MG TABLET PO SCH (20:11)
[2016-11-29] MEDS: HALOPERIDOL 10 MG TABLET PO SCH (20:11)
[2016-11-29] MEDS: ZOLPIDEM TARTRATE 10 MG TABLET PO PRN (20:23)
[2016-11-30 06:39] VITALS: BP 114/65
[2016-11-30 08:02] VITALS: BP 115/63
[2016-11-30 16:05] VITALS: BP 121/71
[2016-11-30] MEDS: HALOPERIDOL 5 MG TABLET PO PRN (17:06)
[2016-11-30] MEDS: LORazepam 2 MG TABLET PO PRN (17:06)
[2016-11-30] MEDS: ZOLPIDEM TARTRATE 10 MG TABLET PO PRN (20:36)
[2016-11-30] MEDS: HALOPERIDOL 10 MG TABLET PO SCH (20:36)
[2016-11-30] MEDS: BENZTROPINE MESYLATE 2 MG TABLET PO SCH (20:36)
[2016-11-30] MEDS: OLANZapine 10 MG TABLET PO SCH (20:36)
[2016-12-01 08:02] VITALS: BP 119/71
[2016-12-01] MEDS: HALOPERIDOL 5 MG TABLET PO PRN ×2 (11:48→16:54)
[2016-12-01] MEDS: LORazepam 2 MG TABLET PO PRN ×2 (11:48→16:54)
[2016-12-01 16:00] VITALS: BP 110/90
[2016-12-01] MEDS: HALOPERIDOL 10 MG TABLET PO SCH (21:19)
[2016-12-01] MEDS: OLANZapine 10 MG TABLET PO SCH (21:19)
[2016-12-01] MEDS: BENZTROPINE MESYLATE 2 MG TABLET PO SCH (21:19)
[2016-12-01] MEDS: ZOLPIDEM TARTRATE 10 MG TABLET PO PRN (21:20)
[2016-12-02 08:02] VITALS: BP 114/71
[2016-12-02] MEDS: HALOPERIDOL 5 MG TABLET PO PRN ×2 (12:32→16:56)
[2016-12-02] MEDS: LORazepam 2 MG TABLET PO PRN ×2 (12:32→16:56)
[2016-12-02 16:08] VITALS: BP 107/65
[2016-12-02] MEDS: OLANZapine 10 MG TABLET PO SCH (20:34)
[2016-12-02] MEDS: HALOPERIDOL 10 MG TABLET PO SCH (20:34)
[2016-12-02] MEDS: ZOLPIDEM TARTRATE 10 MG TABLET PO PRN (20:35)
[2016-12-02] MEDS: BENZTROPINE MESYLATE 2 MG TABLET PO SCH (20:35)
[2016-12-03 06:11] VITALS: BP 110/70
[2016-12-03 08:16] VITALS: BP 117/68
[2016-12-03] MEDS: LORazepam 2 MG TABLET PO PRN ×2 (11:32→17:44)
[2016-12-03] MEDS: HALOPERIDOL 5 MG TABLET PO PRN ×2 (11:32→17:44)
[2016-12-03 16:00] VITALS: BP 134/79
[2016-12-03] MEDS: ALBUTEROL SULFATE HFA 90 MCG/PUFF 8 GM INHALER IH PRN (17:52)
[2016-12-03] MEDS: BENZTROPINE MESYLATE 2 MG TABLET PO SCH (20:01)
[2016-12-03] MEDS: HALOPERIDOL 10 MG TABLET PO SCH (20:03)
[2016-12-03] MEDS: ZOLPIDEM TARTRATE 10 MG TABLET PO PRN (20:03)
[2016-12-03] MEDS: OLANZapine 10 MG TABLET PO SCH (20:42)
[2016-12-04 08:02] VITALS: BP 107/73
[2016-12-04] MEDS: HALOPERIDOL 5 MG TABLET PO PRN ×2 (12:31→16:31)
[2016-12-04] MEDS: LORazepam 2 MG TABLET PO PRN ×2 (12:31→16:31)
[2016-12-04 16:00] VITALS: BP 137/76
[2016-12-04] MEDS: BENZTROPINE MESYLATE 2 MG TABLET PO SCH (20:38)
[2016-12-04] MEDS: HALOPERIDOL 10 MG TABLET PO SCH (20:38)
[2016-12-04] MEDS: OLANZapine 10 MG TABLET PO SCH (20:38)
[2016-12-04] MEDS: ZOLPIDEM TARTRATE 10 MG TABLET PO PRN (20:38)
[2016-12-05 08:02] VITALS: BP 126/71
[2016-12-05] MEDS: HALOPERIDOL 5 MG TABLET PO PRN ×2 (12:05→16:13)
[2016-12-05] MEDS: LORazepam 2 MG TABLET PO PRN ×3 (12:05→20:31)
[2016-12-05] MEDS ORDERED: TUBERCULIN, PURIFIED PROTEIN DERIVATIVE 5 TU/0.1 ML SYG ID ONE (13:15)
[2016-12-05 16:10] VITALS: BP 143/82
[2016-12-05] MEDS: OLANZapine 10 MG TABLET PO SCH (20:30)
[2016-12-05] MEDS: BENZTROPINE MESYLATE 2 MG TABLET PO SCH (20:30)
[2016-12-05] MEDS: HALOPERIDOL 10 MG TABLET PO SCH (20:30)
[2016-12-05] MEDS: ZOLPIDEM TARTRATE 10 MG TABLET PO PRN (20:31)
[2016-12-06 08:02] VITALS: BP 123/60
[2016-12-06] MEDS: LORazepam 2 MG TABLET PO PRN ×3 (11:37→20:25)
[2016-12-06] MEDS: HALOPERIDOL 5 MG TABLET PO PRN ×2 (11:37→15:58)
[2016-12-06 16:01] VITALS: BP 148/89
[2016-12-06] MEDS: ZOLPIDEM TARTRATE 10 MG TABLET PO PRN (20:25)
[2016-12-06] MEDS: BENZTROPINE MESYLATE 2 MG TABLET PO SCH (20:25)
[2016-12-06] MEDS: OLANZapine 10 MG TABLET PO SCH (20:25)
[2016-12-06] MEDS: HALOPERIDOL 10 MG TABLET PO SCH (20:25)
[2016-12-06] MEDS: ALBUTEROL SULFATE HFA 90 MCG/PUFF 8 GM INHALER IH PRN (22:40)
[2016-12-07 06:02] VITALS: BP 135/90
[2016-12-07 08:02] VITALS: BP 125/75
[2016-12-07] MEDS: LORazepam 2 MG TABLET PO PRN ×2 (09:52→16:19)
[2016-12-07] MEDS: HALOPERIDOL 5 MG TABLET PO PRN ×2 (09:52→16:19)
[2016-12-07] MEDS: ALBUTEROL SULFATE HFA 90 MCG/PUFF 8 GM INHALER IH PRN ×2 (12:18→16:19)
[2016-12-07 16:00] VITALS: BP 111/69
[2016-12-07] MEDS: BENZTROPINE MESYLATE 2 MG TABLET PO SCH (20:23)
[2016-12-07] MEDS: OLANZapine 10 MG TABLET PO SCH (20:23)
[2016-12-07] MEDS: ZOLPIDEM TARTRATE 10 MG TABLET PO PRN (20:24)
[2016-12-07] MEDS: HALOPERIDOL 10 MG TABLET PO SCH (20:24)
[2016-12-08 06:40] VITALS: BP 117/71
[2016-12-08 08:24] VITALS: BP 114/65
[2016-12-08] MEDS: LORazepam 2 MG TABLET PO PRN ×2 (12:55→17:07)
[2016-12-08] MEDS: HALOPERIDOL 5 MG TABLET PO PRN ×2 (12:56→17:07)
[2016-12-08 16:00] VITALS: BP 135/81
[2016-12-08] MEDS: ALBUTEROL SULFATE HFA 90 MCG/PUFF 8 GM INHALER IH PRN (17:07)
[2016-12-08] MEDS: HALOPERIDOL 10 MG TABLET PO SCH (21:00)
[2016-12-08] MEDS: BENZTROPINE MESYLATE 2 MG TABLET PO SCH (21:00)
[2016-12-08] MEDS: OLANZapine 10 MG TABLET PO SCH (21:01)
[2016-12-08] MEDS: ZOLPIDEM TARTRATE 10 MG TABLET PO PRN (21:01)
[2016-12-09 06:30] VITALS: BP 114/63
[2016-12-09 08:02] VITALS: BP 109/63
[2016-12-09] MEDS: HALOPERIDOL 5 MG TABLET PO PRN ×2 (11:33→16:19)
[2016-12-09] MEDS: LORazepam 2 MG TABLET PO PRN ×3 (11:33→20:27)
[2016-12-09 16:06] VITALS: BP 123/74
[2016-12-09] MEDS: ALBUTEROL SULFATE HFA 90 MCG/PUFF 8 GM INHALER IH PRN (16:18)
[2016-12-09] MEDS: ZOLPIDEM TARTRATE 10 MG TABLET PO PRN (20:27)
[2016-12-09] MEDS: BENZTROPINE MESYLATE 2 MG TABLET PO SCH (20:27)
[2016-12-09] MEDS: HALOPERIDOL 10 MG TABLET PO SCH (20:27)
[2016-12-09] MEDS: OLANZapine 10 MG TABLET PO SCH (20:27)
[2016-12-10 08:02] VITALS: BP 119/69
[2016-12-10] MEDS: LORazepam 2 MG TABLET PO PRN ×3 (10:33→20:38)
[2016-12-10] MEDS: HALOPERIDOL 5 MG TABLET PO PRN ×2 (10:33→16:38)
[2016-12-10 16:00] VITALS: BP 118/71
[2016-12-10] MEDS: ALBUTEROL SULFATE HFA 90 MCG/PUFF 8 GM INHALER IH PRN (16:38)
[2016-12-10] MEDS: HALOPERIDOL 10 MG TABLET PO SCH (20:38)
[2016-12-10] MEDS: BENZTROPINE MESYLATE 2 MG TABLET PO SCH (20:38)
[2016-12-10] MEDS: OLANZapine 10 MG TABLET PO SCH (20:38)
[2016-12-10] MEDS: ZOLPIDEM TARTRATE 10 MG TABLET PO PRN (20:38)
[2016-12-11 08:02] VITALS: BP 131/63
[2016-12-11] MEDS: LORazepam 2 MG TABLET PO PRN ×2 (11:18→17:39)
[2016-12-11] MEDS: HALOPERIDOL 5 MG TABLET PO PRN ×2 (11:18→17:39)
[2016-12-11 16:00] VITALS: BP 118/77
[2016-12-11] MEDS: HALOPERIDOL 10 MG TABLET PO SCH (20:20)
[2016-12-11] MEDS: ZOLPIDEM TARTRATE 10 MG TABLET PO PRN (20:20)
[2016-12-11] MEDS: OLANZapine 10 MG TABLET PO SCH (20:20)
[2016-12-11] MEDS: ALBUTEROL SULFATE HFA 90 MCG/PUFF 8 GM INHALER IH PRN (20:20)
[2016-12-11] MEDS: BENZTROPINE MESYLATE 2 MG TABLET PO SCH (20:20)
[2016-12-12 08:22] VITALS: BP 102/66
[2016-12-12] MEDS: HALOPERIDOL 5 MG TABLET PO PRN ×2 (13:26→17:28)
[2016-12-12] MEDS: LORazepam 2 MG TABLET PO PRN ×2 (13:26→17:28)
[2016-12-12 16:00] VITALS: BP 130/77
[2016-12-12] MEDS: ZOLPIDEM TARTRATE 10 MG TABLET PO PRN (20:42)
[2016-12-12] MEDS: HALOPERIDOL 10 MG TABLET PO SCH (20:42)
[2016-12-12] MEDS: OLANZapine 10 MG TABLET PO SCH (20:42)
[2016-12-12] MEDS: BENZTROPINE MESYLATE 2 MG TABLET PO SCH (20:42)
[2016-12-12] MEDS: ALBUTEROL SULFATE HFA 90 MCG/PUFF 8 GM INHALER IH PRN (20:43)
[2016-12-13 08:18] VITALS: BP 105/65
[2016-12-13] MEDS: LORazepam 2 MG TABLET PO PRN ×2 (12:23→17:00)
[2016-12-13 16:30] VITALS: BP 124/74
[2016-12-13] MEDS: HALOPERIDOL 10 MG TABLET PO SCH (20:54)
[2016-12-13] MEDS: OLANZapine 10 MG TABLET PO SCH (20:54)
[2016-12-13] MEDS: ZOLPIDEM TARTRATE 10 MG TABLET PO PRN (20:55)
[2016-12-13] MEDS: BENZTROPINE MESYLATE 2 MG TABLET PO SCH (21:14)
[2016-12-14 06:45] VITALS: BP 116/76
[2016-12-14 08:23] VITALS: BP 111/69
[2016-12-14] MEDS: HALOPERIDOL 5 MG TABLET PO PRN ×2 (10:59→17:05)
[2016-12-14] MEDS: LORazepam 2 MG TABLET PO PRN ×2 (10:59→17:05)
[2016-12-14 16:07] VITALS: BP 126/70
[2016-12-14] MEDS: ALBUTEROL SULFATE HFA 90 MCG/PUFF 8 GM INHALER IH PRN (18:39)
[2016-12-14] MEDS: BENZTROPINE MESYLATE 2 MG TABLET PO SCH (20:33)
[2016-12-14] MEDS: HALOPERIDOL 10 MG TABLET PO SCH (20:33)
[2016-12-14] MEDS: ZOLPIDEM TARTRATE 10 MG TABLET PO PRN (20:33)
[2016-12-14] MEDS: OLANZapine 10 MG TABLET PO SCH (20:33)
[2016-12-15] MEDS: ALBUTEROL SULFATE HFA 90 MCG/PUFF 8 GM INHALER IH PRN ×2 (01:05→18:36)
[2016-12-15 06:34] VITALS: BP 118/74
[2016-12-15 16:18] VITALS: BP 119/76
[2016-12-15] MEDS: HALOPERIDOL 5 MG TABLET PO PRN (18:36)
[2016-12-15] MEDS: LORazepam 2 MG TABLET PO PRN (18:36)
[2016-12-15] MEDS: HALOPERIDOL 10 MG TABLET PO SCH (20:41)
[2016-12-15] MEDS: ZOLPIDEM TARTRATE 10 MG TABLET PO PRN (20:41)
[2016-12-15] MEDS: OLANZapine 10 MG TABLET PO SCH (20:41)
[2016-12-15] MEDS: BENZTROPINE MESYLATE 2 MG TABLET PO SCH (20:41)
[2016-12-16 08:37] VITALS: BP 123/82
[2016-12-16] MEDS: LORazepam 2 MG TABLET PO PRN ×2 (11:17→16:02)
[2016-12-16] MEDS: HALOPERIDOL 5 MG TABLET PO PRN ×2 (11:17→16:02)
[2016-12-16 16:06] VITALS: BP 131/88
[2016-12-16] MEDS: ZOLPIDEM TARTRATE 10 MG TABLET PO PRN (20:24)
[2016-12-16] MEDS: BENZTROPINE MESYLATE 2 MG TABLET PO SCH (20:24)
[2016-12-16] MEDS: OLANZapine 10 MG TABLET PO SCH (20:24)
[2016-12-16] MEDS: HALOPERIDOL 10 MG TABLET PO SCH (20:24)
[2016-12-17 07:04] VITALS: BP 130/85
[2016-12-17] MEDS: LORazepam 2 MG TABLET PO PRN ×2 (11:32→17:06)
[2016-12-17] MEDS: HALOPERIDOL 5 MG TABLET PO PRN ×2 (11:32→17:06)
[2016-12-17] MEDS: BENZTROPINE MESYLATE 1 MG TABLET PO SCH (13:35)
[2016-12-17 16:11] VITALS: BP 139/88
[2016-12-17] MEDS: BENZTROPINE MESYLATE 2 MG TABLET PO SCH (21:06)
[2016-12-17] MEDS: ZOLPIDEM TARTRATE 10 MG TABLET PO PRN (21:06)
[2016-12-17] MEDS: HALOPERIDOL 10 MG TABLET PO SCH (21:06)
[2016-12-17] MEDS: OLANZapine 10 MG TABLET PO SCH (21:06)
[2016-12-18 08:24] VITALS: BP 109/62
[2016-12-18] MEDS: BENZTROPINE MESYLATE 1 MG TABLET PO SCH (09:26)
[2016-12-18] MEDS: PALIPERIDONE PALMITATE 234 MG/1.5 ML SYRINGE IM SCH (09:26)
[2016-12-18] MEDS: LORazepam 2 MG TABLET PO PRN ×2 (13:31→17:35)
[2016-12-18 16:00] VITALS: BP 130/79
[2016-12-18] MEDS: HALOPERIDOL 5 MG TABLET PO PRN (17:35)
[2016-12-18] MEDS: BENZTROPINE MESYLATE 2 MG TABLET PO SCH (20:34)
[2016-12-18] MEDS: HALOPERIDOL 10 MG TABLET PO SCH (20:34)
[2016-12-18] MEDS: OLANZapine 10 MG TABLET PO SCH (20:34)
[2016-12-18] MEDS: ZOLPIDEM TARTRATE 10 MG TABLET PO PRN (20:34)
[2016-12-19] MEDS ORDERED: HALO10 PO (08:09)
[2016-12-19] MEDS ORDERED: BENZ2TAB10 PO (08:09)
[2016-12-19] MEDS ORDERED: BENZ1TAB10 PO (08:09)
[2016-12-19 08:19] VITALS: BP 102/69
[2016-12-19] MEDS: BENZTROPINE MESYLATE 1 MG TABLET PO SCH (09:00)
== END 2016-12-19 09:55 | disposition home or self-care (01) | DRG 750 ==
LOC: EMS 11:52 → B3A 17:19
PROVIDERS: ADMIT Psychiatry & Neurology Psychiatry; ATTEND Psychiatry & Neurology Psychiatry
DX: F25.9 Schizoaffective disorder, unspecified (principal); R45.851 Suicidal ideations; Z91.19 Patient's noncompliance with other medical treatment and regimen; F20.0 Paranoid schizophrenia; F10.10 Alcohol abuse, uncomplicated; F17.210 Nicotine dependence, cigarettes, uncomplicated; F12.10 Cannabis abuse, uncomplicated; F15.90 Other stimulant use, unspecified, uncomplicated; Z71.51 Drug abuse counseling and surveillance of drug abuser; Z71.6 Tobacco abuse counseling; Z88.8 Allergy status to other drugs, medicaments and biological substances; Z91.018 Allergy to other foods; Z79.899 Other long term (current) drug therapy; Z71.41 Alcohol abuse counseling and surveillance of alcoholic; Z28.21 Immunization not carried out because of patient refusal
CPT/HCPCS: 83735; 84100; 87081; 96372; 99285; G0480; J1200; J1630; J2060; J3230; J3535; Q0162

== ENCOUNTER 2022-01-22 18:43 | Emergency (ER) | payer MEDICAID ==
[~2022-01-22] VITALS: Ht 175.3 cm; Wt 109.0 kg
[~2022-01-22 18:43] MED LIST changes: +BENZ1TAB96 PO; +BENZ2TAB76 PO; -BUSP10TA23 PO; -BUSP5TAB20 PO; +HALO10 PO; -NICO14T TD; -OLAN10TA22 PO; -OLAN10TA6 PO; +OLAN10TA74 PO
[2022-01-22 19:30] VITALS: BP 129/80
[2022-01-22 19:54] LABS: BASOPHILS % (AUTO) 0.8 % (0.0-2.0); EOSINOPHILS % (AUTO) 0.2 % (1.0-6.0); HEMATOCRIT 41.1 % (41-53); LYMPHOCYTES # (AUTO) 2.8 K/uL (1.0-4.8); LYMPHOCYTES % (AUTO) 20.9 % (22.0-44.0); MEAN CORPUSCULAR HEMOGLOBIN 28.2 pg (26.0-34.0); MEAN CORPUSCULAR HGB CONC 33.9 G/dL (31.0-37.0); MEAN CORPUSCULAR VOLUME 83 fL (80-100); MONOCYTES # (AUTO) 1.6 K/uL (0.1-1.0); MONOCYTES % (AUTO) 11.8 % (2.0-9.0); NEUTROPHILS # (AUTO) 8.9 K/uL (1.8-7.7); NEUTROPHILS % (AUTO) 66.3 % (40.0-70.0); PLATELET COUNT (AUTO) 195 K/uL (150-450); RED BLOOD CELL COUNT(AUTO) 4.94 MIL/uL (4.50-5.90); RED CELL DISTRIBUTION WIDTH 13.9 % (11.5-14.5)
[2022-01-22 20:03] LABS: ANION GAP 12 mmol/L (8-16); CARBON DIOXIDE 24 mmol/L (22-29); CHLORIDE 94 mmol/L (98-107); CREATININE 0.99 mg/dL (0.60-1.30); GLUCOSE,RANDOM 82 mg/dL (70-110); POTASSIUM 4.1 mmol/L (3.5-5.1); SODIUM SERUM 130 mmol/L (136-145); UREA NITROGEN, BLOOD 20 mg/dL (7-18)
[2022-01-22 20:04] LABS: CALCIUM, TOTAL 9.6 mg/dL (8.8-10.5); GLOMERULAR FILTR. RATE CALC > 60 mL/min (>60)
[2022-01-22 20:13] LABS: ALANINE AMINOTRANSFERASE 112 U/L (12-78); ALBUMIN 4.2 g/dL (3.4-5.0); ALKALINE PHOSPHATASE 87 U/L (46-116); ASPARTATE AMINOTRANSFERASE 260 U/L (15-37); BILIRUBIN,TOTAL 0.6 mg/dL (0.1-1.0); TOTAL PROTEIN, SERUM 8.5 g/dL (6.4-8.2)
== END 2022-01-23 | disposition home or self-care (01) ==
LOC: EMS 18:43
DX: F20.9 Schizophrenia, unspecified (principal); F10.20 Alcohol dependence, uncomplicated; Y90.0 Blood alcohol level of less than 20 mg/100 ml; G24.9 Dystonia, unspecified; G89.29 Other chronic pain; F12.90 Cannabis use, unspecified, uncomplicated; F17.210 Nicotine dependence, cigarettes, uncomplicated; Z88.8 Allergy status to other drugs, medicaments and biological substances; Z87.898 Personal history of other specified conditions
CPT/HCPCS: 36415; 80053; 85025; 99284; G0480

== ENCOUNTER 2022-02-21 00:10 | Inpatient (IN) | payer MEDICAID ==
[~2022-02-21] VITALS: Ht 175.3 cm; Wt 109.0 kg
[2022-02-21] MEDS ORDERED: DiphenhydrAMINE HCL 50 MG/ML VIAL IM ONE (02:15)
[2022-02-21] MEDS ORDERED: LORazepam 2 MG/ML VIAL IM ONE (02:15)
[2022-02-21] MEDS ORDERED: DiphenhydrAMINE HCL 50 MG/ML VIAL IVP ONE (02:15)
[2022-02-21] MEDS ORDERED: HALOPERIDOL 5 MG TABLET PO PRN (03:00)
[2022-02-21] MEDS ORDERED: LORazepam 2 MG TABLET PO PRN (03:00)
[2022-02-21] MEDS ORDERED: ZOLPIDEM TARTRATE 10 MG TABLET PO PRN (03:00)
[2022-02-21 03:19] LABS: COVID AG,FIA SOURCE NASAL SWAB
[2022-02-21 03:24] LABS: BASOPHILS % (AUTO) 0.7 % (0.0-2.0); EOSINOPHILS % (AUTO) 0.5 % (1.0-6.0); HEMATOCRIT 36.5 % (41-53); HEMOGLOBIN 12.2 g/dL (13.5-17.5); LYMPHOCYTES # (AUTO) 4.4 K/uL (1.0-4.8); LYMPHOCYTES % (AUTO) 36.9 % (22.0-44.0); MEAN CORPUSCULAR HEMOGLOBIN 27.6 pg (26.0-34.0); MEAN CORPUSCULAR HGB CONC 33.4 G/dL (31.0-37.0); MEAN CORPUSCULAR VOLUME 83 fL (80-100); MONOCYTES # (AUTO) 1.1 K/uL (0.1-1.0); MONOCYTES % (AUTO) 9.6 % (2.0-9.0); NEUTROPHILS # (AUTO) 6.2 K/uL (1.8-7.7); NEUTROPHILS % (AUTO) 52.3 % (40.0-70.0); PLATELET COUNT (AUTO) 264 K/uL (150-450); RED BLOOD CELL COUNT(AUTO) 4.41 MIL/uL (4.50-5.90); RED CELL DISTRIBUTION WIDTH 13.7 % (11.5-14.5)
[2022-02-21 03:34] LABS: ANION GAP 11 mmol/L (8-16); CALCIUM, TOTAL 8.7 mg/dL (8.8-10.5); CARBON DIOXIDE 24 mmol/L (22-29); CHLORIDE 97 mmol/L (98-107); CREATININE 0.76 mg/dL (0.60-1.30); GLOMERULAR FILTR. RATE CALC > 60 mL/min (>60); GLUCOSE,RANDOM 75 mg/dL (70-110); POTASSIUM 3.4 mmol/L (3.5-5.1); SODIUM SERUM 132 mmol/L (136-145); UREA NITROGEN, BLOOD 18 mg/dL (7-18)
[2022-02-21 03:59] LABS: ALANINE AMINOTRANSFERASE 51 U/L (12-78); ALBUMIN 3.3 g/dL (3.4-5.0); ALKALINE PHOSPHATASE 94 U/L (46-116); ASPARTATE AMINOTRANSFERASE 46 U/L (15-37); BILIRUBIN,TOTAL 0.6 mg/dL (0.1-1.0); CREATINE KINASE, TOTAL ONLY 1047 U/L (39-308); TOTAL PROTEIN, SERUM 6.7 g/dL (6.4-8.2)
[2022-02-21] MEDS ORDERED: SODIUM CHLORIDE 0.9% 1,000 ML IV ONE (04:30)
[2022-02-21] MEDS ORDERED: POTASSIUM CHLORIDE 20 MEQ ER TABLET PO ONE (04:30)
[2022-02-21 07:15] LABS: AMPHET/METH SCREEN,URINE POSITIVE (NEGATIVE); BARBITURATE SCREEN, URINE NEGATIVE (NEGATIVE); BENZODIAZEPINES SCREEN,URINE NEGATIVE (NEGATIVE); CANNABINOID SCREEN,URINE NEGATIVE (NEGATIVE); COCAINE SCREEN,URINE NEGATIVE (NEGATIVE); METHADONE SCREEN, URINE NEGATIVE (NEGATIVE); OPIATE SCREEN,URINE NEGATIVE (NEGATIVE)
[2022-02-21] MEDS ORDERED: POTASSIUM CHLORIDE 20 MEQ ER TABLET PO PRN (07:15)
[2022-02-21] MEDS ORDERED: LORazepam 2 MG/ML VIAL IVP PRN (07:15)
[2022-02-21] MEDS ORDERED: POTASSIUM CHL 10 MEQ/WATER 50 ML IV PRN (07:15)
[2022-02-21] MEDS ORDERED: ONDANSETRON HCL 4 MG/2 ML VIAL IVP PRN (07:15)
[2022-02-21 07:30] LABS: PHENCYCLIDINE SCREEN,URINE NEGATIVE (NEGATIVE)
[2022-02-21 08:08] LABS: APPEARANCE,URINE CLEAR (CLEAR); BILIRUBIN,URINE NEGATIVE (NEGATIVE); GLUCOSE, URINE (UA) NEGATIVE (NEGATIVE); KETONES,URINE 40-60 mg/dL (NEGATIVE); LEUKOCYTE ESTERASE ,URINE NEGATIVE (NEGATIVE); NITRATE,URINE NEGATIVE (NEGATIVE); OCCULT BLOOD,URINE NEGATIVE (NEGATIVE); PH,URINE 5.5 (5.0-8.0); PROTEIN,URINE NEGATIVE (NEGATIVE); SPECIFIC GRAVITIY, URINE 1.019 (1.003-1.030); UROBILINOGEN,URINE <=1.0 mg/dL (<=1.0)
[2022-02-21] MEDS: SODIUM CHLORIDE 0.9% 1,000 ML IV SCH ×2 (08:16→18:49)
[2022-02-21] MEDS: DOCUSATE SODIUM 100 MG CAPSULE PO SCH ×2 (08:59→21:00)
[2022-02-21] MEDS: FAMOTIDINE 20 MG TABLET PO SCH (08:59)
[2022-02-21 20:45] VITALS: BP 103/53
[2022-02-22 04:17] VITALS: BP 109/53
[2022-02-22 08:10] VITALS: BP 120/79
[2022-02-22] MEDS: SODIUM CHLORIDE 0.9% 1,000 ML IV SCH ×2 (08:15→20:45)
[2022-02-22 08:20] LABS: ANION GAP 5 mmol/L (8-16); CARBON DIOXIDE 26 mmol/L (22-29); CHLORIDE 106 mmol/L (98-107); CREATININE 0.64 mg/dL (0.60-1.30); GLOMERULAR FILTR. RATE CALC > 60 mL/min (>60); GLUCOSE,RANDOM 105 mg/dL (70-110); POTASSIUM 4.1 mmol/L (3.5-5.1); SODIUM SERUM 137 mmol/L (136-145); UREA NITROGEN, BLOOD 7 mg/dL (7-18)
[2022-02-22] MEDS: DOCUSATE SODIUM 100 MG CAPSULE PO SCH ×2 (09:00→20:03)
[2022-02-22] MEDS: FAMOTIDINE 20 MG TABLET PO SCH (09:00)
[2022-02-22] MEDS: ACETAMINOPHEN 325 MG TABLET PO PRN ×2 (12:35→20:00)
[2022-02-22 16:25] VITALS: BP 101/48
[2022-02-22] MEDS: LORazepam 1 MG TABLET PO PRN (20:00)
[2022-02-22] MEDS ORDERED: HALOPERIDOL LACTATE 5 MG/ML VIAL IM ONE (20:30)
[2022-02-22] MEDS ORDERED: RisperiDONE 1 MG TABLET PO ONE (20:45)
[2022-02-22] MEDS ORDERED: LORazepam 1 MG TABLET PO PRN (20:45)
[2022-02-22] MEDS ORDERED: OLANZapine 10 MG TABLET PO SCH ×2 (21:00)
[2022-02-23 07:38] LABS: BASOPHILS % (AUTO) 0.7 % (0.0-2.0); EOSINOPHILS % (AUTO) 0.1 % (1.0-6.0); HEMATOCRIT 37.8 % (41-53); HEMOGLOBIN 12.6 g/dL (13.5-17.5); LYMPHOCYTES # (AUTO) 2.9 K/uL (1.0-4.8); LYMPHOCYTES % (AUTO) 43.8 % (22.0-44.0); MEAN CORPUSCULAR HGB CONC 33.4 G/dL (31.0-37.0); MEAN CORPUSCULAR VOLUME 84 fL (80-100); MONOCYTES # (AUTO) 0.6 K/uL (0.1-1.0); MONOCYTES % (AUTO) 8.4 % (2.0-9.0); NEUTROPHILS # (AUTO) 3.2 K/uL (1.8-7.7); PLATELET COUNT (AUTO) 255 K/uL (150-450); RED CELL DISTRIBUTION WIDTH 14.1 % (11.5-14.5)
[2022-02-23] MEDS: FAMOTIDINE 20 MG TABLET PO SCH (08:54)
[2022-02-23] MEDS: LORazepam 1 MG TABLET PO PRN (08:54)
[2022-02-23] MEDS: DOCUSATE SODIUM 100 MG CAPSULE PO SCH (08:54)
[2022-02-23 08:57] VITALS: BP 126/82
[2022-02-23] MEDS: ACETAMINOPHEN 325 MG TABLET PO PRN (09:31)
[2022-02-23 15:28] LABS: COVID AG,FIA SOURCE NASOPHARYNGEAL
[2022-02-23 16:04] VITALS: BP 131/77
[2022-02-23] MEDS ORDERED: DOCU50LI25 PO (17:52)
[2022-02-23] MEDS ORDERED: FAMO20 PO (17:52)
[2022-02-23] MEDS ORDERED: OLAN10TA74 PO (17:53)
[2022-02-23] MEDS ORDERED: ACET650S24 PR (17:54)
[2022-02-23] MEDS ORDERED: LORA-1000 PO (17:55)
== END 2022-02-23 17:10 | DRG 351 ==
LOC: EMS 00:10 → 6S 20:35
PROVIDERS: ADMIT Internal Medicine; ATTEND Internal Medicine
DX: M62.82 Rhabdomyolysis (principal); E87.1 Hypo-osmolality and hyponatremia; F20.0 Paranoid schizophrenia; Z20.822 Contact with and (suspected) exposure to COVID-19; G24.01 Drug induced subacute dyskinesia; E66.9 Obesity, unspecified; E87.6 Hypokalemia; F17.210 Nicotine dependence, cigarettes, uncomplicated; Z91.19 Patient's noncompliance with other medical treatment and regimen; Z88.8 Allergy status to other drugs, medicaments and biological substances; Z68.35 Body mass index [BMI] 35.0-35.9, adult
CPT/HCPCS: 80048; 80053; 81003; 82550; 85025; 99285; G0480; J1200; J1630; J2060; J7030

== ENCOUNTER 2022-02-23 13:02 | Inpatient (IN) | payer MEDICAID ==
[~2022-02-23] VITALS: Ht 165.1 cm; Wt 106.0 kg
[~2022-02-23 13:02] MED LIST changes: -HALO10 PO; +HALO10TA21 PO; -OLAN10TA74 PO
[2022-02-23] MEDS ORDERED: DOCU50LI25 PO (17:52)
[2022-02-23] MEDS ORDERED: FAMO20 PO (17:52)
[2022-02-23] MEDS ORDERED: OLAN10TA74 PO (17:53)
[2022-02-23] MEDS ORDERED: ACET650S24 PR (17:54)
[2022-02-23] MEDS ORDERED: LORA-1000 PO (17:55)
[2022-02-23 18:26] VITALS: BP 126/78
[2022-02-23] MEDS: LORazepam 2 MG TABLET PO PRN (18:26)
[2022-02-23] MEDS: HALOPERIDOL 5 MG TABLET PO PRN (18:26)
[2022-02-23] MEDS: OLANZapine 10 MG TABLET PO SCH (20:29)
[2022-02-24 08:22] VITALS: BP 126/78
[2022-02-24] MEDS: DOCUSATE SODIUM 100 MG CAPSULE PO SCH ×2 (08:23→16:26)
[2022-02-24] MEDS: FAMOTIDINE 20 MG TABLET PO SCH (08:23)
[2022-02-24] MEDS: LORazepam 2 MG TABLET PO PRN ×3 (08:23→19:43)
[2022-02-24] MEDS: HALOPERIDOL 5 MG TABLET PO PRN ×3 (08:24→19:43)
[2022-02-24] MEDS ORDERED: PETROLATUM,WHITE 28 GM JELLY TP PRN (11:30)
[2022-02-24] MEDS ORDERED: MAGNESIUM HYDROXIDE SUSPENSION 30 ML UDCUP PO PRN (11:30)
[2022-02-24] MEDS ORDERED: GuaiFENesin/D-METHORPHAN [SUGAR-FREE] 200-20MG/10 ML SYRUP UDCUP PO PRN (11:30)
[2022-02-24] MEDS ORDERED: ONDANSETRON HCL 4 MG TABLET PO PRN (11:30)
[2022-02-24] MEDS ORDERED: ALBUTEROL SULFATE HFA 90 MCG/PUFF 8 GM INHALER IH PRN (11:30)
[2022-02-24] MEDS ORDERED: MAG HYDROX/AL HYDROX/SIMETH ES 30 ML SUSPENSION UDCUP PO PRN (11:30)
[2022-02-24] MEDS ORDERED: CloNIDine HCL 0.1 MG TABLET PO PRN (11:30)
[2022-02-24] MEDS ORDERED: ACETAMINOPHEN 325 MG TABLET PO PRN (11:30)
[2022-02-24] MEDS ORDERED: LOPERAMIDE HCL 2 MG CAPSULE PO PRN (11:30)
[2022-02-24] MEDS ORDERED: IBUPROFEN 400 MG TABLET PO PRN (11:30)
[2022-02-24] MEDS ORDERED: DOCUSATE SODIUM 100 MG CAPSULE PO PRN (11:30)
[2022-02-24] MEDS: OLANZapine 10 MG TABLET PO SCH (20:38)
[2022-02-25] MEDS ORDERED: FAMOTIDINE 20 MG TABLET PO SCH (09:00)
[2022-02-25] MEDS: FAMOTIDINE 20 MG TABLET PO SCH (09:11)
[2022-02-25] MEDS: DOCUSATE SODIUM 100 MG CAPSULE PO SCH ×2 (09:11→16:09)
[2022-02-25 09:27] VITALS: BP 141/114
[2022-02-25 16:23] VITALS: BP 135/87
[2022-02-25] MEDS: LORazepam 2 MG TABLET PO PRN (17:00)
[2022-02-25] MEDS: HALOPERIDOL 5 MG TABLET PO PRN (17:00)
[2022-02-25] MEDS: OLANZapine 10 MG TABLET PO SCH (20:08)
[2022-02-25] MEDS: ZOLPIDEM TARTRATE 10 MG TABLET PO PRN (22:15)
[2022-02-26] MEDS: FAMOTIDINE 20 MG TABLET PO SCH (08:03)
[2022-02-26] MEDS: HALOPERIDOL 5 MG TABLET PO PRN ×2 (08:03→15:51)
[2022-02-26] MEDS: DOCUSATE SODIUM 100 MG CAPSULE PO SCH ×2 (08:03→17:02)
[2022-02-26 09:13] VITALS: BP 132/87
[2022-02-26] MEDS: LORazepam 2 MG TABLET PO PRN (15:51)
[2022-02-26 18:14] VITALS: BP 128/84
[2022-02-26] MEDS: OLANZapine 10 MG TABLET PO SCH (20:06)
[2022-02-26] MEDS: ZOLPIDEM TARTRATE 10 MG TABLET PO PRN (20:12)
[2022-02-27] MEDS: DOCUSATE SODIUM 100 MG CAPSULE PO SCH ×2 (08:53→16:09)
[2022-02-27] MEDS: FAMOTIDINE 20 MG TABLET PO SCH (08:53)
[2022-02-27 09:09] VITALS: BP 123/76
[2022-02-27] MEDS: LORazepam 2 MG TABLET PO PRN (16:09)
[2022-02-27 16:10] VITALS: BP 131/82
[2022-02-27] MEDS: HALOPERIDOL 5 MG TABLET PO PRN (16:10)
[2022-02-27] MEDS: OLANZapine 10 MG TABLET PO SCH (20:12)
[2022-02-27] MEDS: ZOLPIDEM TARTRATE 10 MG TABLET PO PRN (20:12)
[2022-02-28] MEDS: FAMOTIDINE 20 MG TABLET PO SCH (08:53)
[2022-02-28] MEDS: HALOPERIDOL 5 MG TABLET PO PRN ×2 (08:53→16:24)
[2022-02-28] MEDS: LORazepam 2 MG TABLET PO PRN ×2 (08:53→16:24)
[2022-02-28] MEDS: DOCUSATE SODIUM 100 MG CAPSULE PO SCH ×2 (08:53→16:23)
[2022-02-28 16:27] VITALS: BP 118/75
[2022-02-28] MEDS: OLANZapine 7.5 MG TABLET PO SCH (20:14)
[2022-03-01] MEDS: DOCUSATE SODIUM 100 MG CAPSULE PO SCH ×2 (07:56→16:38)
[2022-03-01] MEDS: FAMOTIDINE 20 MG TABLET PO SCH (07:57)
[2022-03-01 08:31] VITALS: BP 149/101
[2022-03-01] MEDS: HALOPERIDOL 5 MG TABLET PO PRN (16:39)
[2022-03-01] MEDS: LORazepam 2 MG TABLET PO PRN (16:39)
[2022-03-01 17:47] VITALS: BP 160/93
[2022-03-01] MEDS: OLANZapine 7.5 MG TABLET PO SCH (20:28)
[2022-03-02 08:00] VITALS: BP 141/88
[2022-03-02] MEDS: DOCUSATE SODIUM 100 MG CAPSULE PO SCH ×2 (08:13→15:55)
[2022-03-02] MEDS: FAMOTIDINE 20 MG TABLET PO SCH (08:13)
[2022-03-02] MEDS: LORazepam 2 MG TABLET PO PRN ×2 (13:42→18:32)
[2022-03-02] MEDS: HALOPERIDOL 5 MG TABLET PO PRN ×2 (13:42→18:32)
[2022-03-02 16:09] VITALS: BP 128/82
[2022-03-02] MEDS: OLANZapine 7.5 MG TABLET PO SCH (20:15)
[2022-03-03 06:45] LABS: COVID AG,FIA SOURCE NASAL SWAB
[2022-03-03 08:00] VITALS: BP 126/73
[2022-03-03] MEDS: FAMOTIDINE 20 MG TABLET PO SCH (08:46)
[2022-03-03] MEDS: HALOPERIDOL 5 MG TABLET PO PRN ×3 (08:46→17:12)
[2022-03-03] MEDS: LORazepam 2 MG TABLET PO PRN ×3 (08:46→17:12)
[2022-03-03] MEDS: DOCUSATE SODIUM 100 MG CAPSULE PO SCH ×2 (08:46→16:38)
[2022-03-03 16:50] VITALS: BP 125/84
[2022-03-03] MEDS: OLANZapine 7.5 MG TABLET PO SCH (20:09)
[2022-03-03] MEDS: ZOLPIDEM TARTRATE 10 MG TABLET PO PRN (20:09)
[2022-03-04] MEDS: DOCUSATE SODIUM 100 MG CAPSULE PO SCH ×2 (08:07→16:29)
[2022-03-04] MEDS: LORazepam 2 MG TABLET PO PRN ×2 (08:07→16:29)
[2022-03-04] MEDS: HALOPERIDOL 5 MG TABLET PO PRN ×2 (08:07→16:29)
[2022-03-04] MEDS: FAMOTIDINE 20 MG TABLET PO SCH (08:07)
[2022-03-04 08:29] VITALS: BP 134/96
[2022-03-04 16:18] VITALS: BP 114/79
[2022-03-04] MEDS: OLANZapine 7.5 MG TABLET PO SCH (20:09)
[2022-03-05] MEDS: DOCUSATE SODIUM 100 MG CAPSULE PO SCH ×2 (07:50→16:38)
[2022-03-05] MEDS: FAMOTIDINE 20 MG TABLET PO SCH (07:50)
[2022-03-05] MEDS: LORazepam 2 MG TABLET PO PRN ×2 (07:50→16:38)
[2022-03-05] MEDS: HALOPERIDOL 5 MG TABLET PO PRN ×2 (07:51→16:38)
[2022-03-05 08:34] VITALS: BP 133/91
[2022-03-05 16:18] VITALS: BP 101/70
[2022-03-05] MEDS: OLANZapine 7.5 MG TABLET PO SCH (20:30)
[2022-03-06] MEDS: LORazepam 2 MG TABLET PO PRN ×2 (08:07→16:30)
[2022-03-06] MEDS: FAMOTIDINE 20 MG TABLET PO SCH (08:07)
[2022-03-06] MEDS: DOCUSATE SODIUM 100 MG CAPSULE PO SCH ×2 (08:07→16:30)
[2022-03-06] MEDS: HALOPERIDOL 5 MG TABLET PO PRN ×2 (08:07→16:30)
[2022-03-06 08:14] VITALS: BP 126/90
[2022-03-06 16:32] VITALS: BP 112/77
[2022-03-06] MEDS: OLANZapine 7.5 MG TABLET PO SCH (20:24)
[2022-03-06] MEDS: ZOLPIDEM TARTRATE 10 MG TABLET PO PRN (20:25)
[2022-03-07] MEDS: DOCUSATE SODIUM 100 MG CAPSULE PO SCH ×2 (09:01→16:48)
[2022-03-07] MEDS: LORazepam 2 MG TABLET PO PRN ×3 (09:02→18:18)
[2022-03-07] MEDS: HALOPERIDOL 5 MG TABLET PO PRN ×3 (09:02→18:18)
[2022-03-07] MEDS: FAMOTIDINE 20 MG TABLET PO SCH (09:02)
[2022-03-07 09:09] VITALS: BP 115/55
[2022-03-07 16:00] VITALS: BP 107/66
[2022-03-07 18:18] VITALS: BP 114/69
[2022-03-07] MEDS: OLANZapine 7.5 MG TABLET PO SCH (20:55)
[2022-03-07] MEDS: ZOLPIDEM TARTRATE 10 MG TABLET PO PRN (20:55)
[2022-03-08 08:15] VITALS: BP 145/109
[2022-03-08] MEDS: DOCUSATE SODIUM 100 MG CAPSULE PO SCH ×2 (08:37→16:31)
[2022-03-08] MEDS: FAMOTIDINE 20 MG TABLET PO SCH (08:37)
[2022-03-08] MEDS: LORazepam 2 MG TABLET PO PRN ×3 (08:37→16:32)
[2022-03-08] MEDS: HALOPERIDOL 5 MG TABLET PO PRN ×2 (08:37→16:32)
[2022-03-08 16:49] VITALS: BP 147/93
[2022-03-08] MEDS: OLANZapine 7.5 MG TABLET PO SCH (20:00)
[2022-03-08] MEDS: ZOLPIDEM TARTRATE 10 MG TABLET PO PRN (20:31)
[2022-03-09 06:50] LABS: ALANINE AMINOTRANSFERASE 106 U/L (12-78); ALBUMIN 3.3 g/dL (3.4-5.0); ALKALINE PHOSPHATASE 94 U/L (46-116); ANION GAP 7 mmol/L (8-16); ASPARTATE AMINOTRANSFERASE 38 U/L (15-37); BILIRUBIN,TOTAL 0.4 mg/dL (0.1-1.0); CALCIUM, TOTAL 9.3 mg/dL (8.8-10.5); CARBON DIOXIDE 29 mmol/L (22-29); CHLORIDE 102 mmol/L (98-107); CREATININE 0.64 mg/dL (0.60-1.30); GLOMERULAR FILTR. RATE CALC > 60 mL/min (>60); GLUCOSE,RANDOM 103 mg/dL (70-110); POTASSIUM 4.7 mmol/L (3.5-5.1); SODIUM SERUM 138 mmol/L (136-145); TOTAL PROTEIN, SERUM 7.2 g/dL (6.4-8.2); UREA NITROGEN, BLOOD 9 mg/dL (7-18)
[2022-03-09] MEDS: HALOPERIDOL 5 MG TABLET PO PRN ×2 (07:58→15:55)
[2022-03-09] MEDS: DOCUSATE SODIUM 100 MG CAPSULE PO SCH ×2 (07:58→16:53)
[2022-03-09] MEDS: FAMOTIDINE 20 MG TABLET PO SCH (07:58)
[2022-03-09] MEDS: LORazepam 2 MG TABLET PO PRN (15:55)
[2022-03-09 16:46] VITALS: BP 140/92
[2022-03-09] MEDS: RisperiDONE 2 MG TABLET PO SCH (16:53)
[2022-03-09] MEDS: OLANZapine 7.5 MG TABLET PO SCH (20:01)
[2022-03-09] MEDS: ZOLPIDEM TARTRATE 10 MG TABLET PO PRN (20:38)
[2022-03-10 06:52] LABS: COVID AG,FIA SOURCE NASAL SWAB
[2022-03-10 08:14] VITALS: BP 132/91
[2022-03-10] MEDS: LORazepam 2 MG TABLET PO PRN ×3 (09:30→16:54)
[2022-03-10] MEDS: DOCUSATE SODIUM 100 MG CAPSULE PO SCH ×2 (09:30→16:34)
[2022-03-10] MEDS: FAMOTIDINE 20 MG TABLET PO SCH (09:31)
[2022-03-10] MEDS: RisperiDONE 2 MG TABLET PO SCH ×2 (09:31→16:34)
[2022-03-10] MEDS: HALOPERIDOL 5 MG TABLET PO PRN (14:01)
[2022-03-10 16:26] VITALS: BP 105/65
[2022-03-10] MEDS: OLANZapine 7.5 MG TABLET PO SCH (20:07)
[2022-03-10] MEDS: ZOLPIDEM TARTRATE 10 MG TABLET PO PRN (20:16)
[2022-03-11] MEDS: RisperiDONE 2 MG TABLET PO SCH ×2 (07:48→16:29)
[2022-03-11] MEDS: LORazepam 2 MG TABLET PO PRN ×3 (07:48→17:50)
[2022-03-11] MEDS: NICOTINE 14 MG/24 HOUR PATCH TD PRN (07:48)
[2022-03-11] MEDS: FAMOTIDINE 20 MG TABLET PO SCH (07:48)
[2022-03-11] MEDS: DOCUSATE SODIUM 100 MG CAPSULE PO SCH ×2 (07:49→16:29)
[2022-03-11 08:31] VITALS: BP 113/79
[2022-03-11] MEDS: HALOPERIDOL 5 MG TABLET PO PRN ×2 (12:44→17:50)
[2022-03-11 16:20] VITALS: BP 95/58
[2022-03-11] MEDS: OLANZapine 7.5 MG TABLET PO SCH (20:00)
[2022-03-11] MEDS: ZOLPIDEM TARTRATE 10 MG TABLET PO PRN (20:30)
[2022-03-12] MEDS: HALOPERIDOL 5 MG TABLET PO PRN ×2 (07:24→18:30)
[2022-03-12] MEDS: LORazepam 2 MG TABLET PO PRN ×2 (07:24→18:30)
[2022-03-12] MEDS: DOCUSATE SODIUM 100 MG CAPSULE PO SCH ×2 (07:24→16:25)
[2022-03-12] MEDS: RisperiDONE 2 MG TABLET PO SCH ×2 (07:24→16:26)
[2022-03-12] MEDS: FAMOTIDINE 20 MG TABLET PO SCH (07:24)
[2022-03-12 08:45] VITALS: BP 95/55
[2022-03-12] MEDS ORDERED: DiphenhydrAMINE HCL 50 MG/ML VIAL IM ONE (13:30)
[2022-03-12] MEDS ORDERED: LORazepam 2 MG/ML VIAL IM ONE (13:30)
[2022-03-12] MEDS ORDERED: HALOPERIDOL LACTATE 5 MG/ML VIAL IM ONE (13:30)
[2022-03-12 16:20] VITALS: BP 149/97
[2022-03-12] MEDS: ZOLPIDEM TARTRATE 10 MG TABLET PO PRN (20:06)
[2022-03-12] MEDS: OLANZapine 7.5 MG TABLET PO SCH (20:06)
[2022-03-13] MEDS: HALOPERIDOL 5 MG TABLET PO PRN ×3 (01:59→15:57)
[2022-03-13] MEDS: LORazepam 2 MG TABLET PO PRN ×3 (01:59→15:56)
[2022-03-13] MEDS: FAMOTIDINE 20 MG TABLET PO SCH (08:57)
[2022-03-13] MEDS: RisperiDONE 2 MG TABLET PO SCH ×2 (08:57→15:57)
[2022-03-13] MEDS: DOCUSATE SODIUM 100 MG CAPSULE PO SCH ×2 (08:57→15:57)
[2022-03-13] MEDS ORDERED: HALOPERIDOL LACTATE 5 MG/ML VIAL IM ONE (15:55)
[2022-03-13] MEDS ORDERED: LORazepam 2 MG/ML VIAL IM ONE (15:55)
[2022-03-13] MEDS ORDERED: DiphenhydrAMINE HCL 50 MG/ML VIAL IM ONE (15:55)
[2022-03-13] MEDS ORDERED: DiphenhydrAMINE HCL 50 MG/ML VIAL ONE (16:00)
[2022-03-13] MEDS ORDERED: LORazepam 2 MG/ML VIAL ONE (16:00)
[2022-03-13] MEDS ORDERED: HALOPERIDOL LACTATE 5 MG/ML VIAL ONE (16:00)
[2022-03-13 16:39] VITALS: BP 117/74
[2022-03-13] MEDS: OLANZapine 7.5 MG TABLET PO SCH (20:02)
[2022-03-14 08:12] VITALS: BP 110/70
[2022-03-14] MEDS: FAMOTIDINE 20 MG TABLET PO SCH (09:11)
[2022-03-14] MEDS: DOCUSATE SODIUM 100 MG CAPSULE PO SCH ×2 (09:11→17:28)
[2022-03-14] MEDS: LORazepam 2 MG TABLET PO PRN ×2 (09:11→15:38)
[2022-03-14] MEDS: HALOPERIDOL 5 MG TABLET PO PRN ×3 (09:11→19:32)
[2022-03-14] MEDS: RisperiDONE 2 MG TABLET PO SCH ×2 (09:12→17:28)
[2022-03-14 16:29] VITALS: BP 130/80
[2022-03-14] MEDS: OLANZapine 7.5 MG TABLET PO SCH (20:14)
[2022-03-15 08:19] VITALS: BP 114/82
[2022-03-15] MEDS: RisperiDONE 2 MG TABLET PO SCH ×2 (09:00→16:35)
[2022-03-15] MEDS: HALOPERIDOL 5 MG TABLET PO PRN ×3 (09:00→20:29)
[2022-03-15] MEDS: FAMOTIDINE 20 MG TABLET PO SCH (09:00)
[2022-03-15] MEDS: DOCUSATE SODIUM 100 MG CAPSULE PO SCH ×2 (09:00→16:35)
[2022-03-15] MEDS: LORazepam 2 MG TABLET PO PRN ×2 (09:00→13:43)
[2022-03-15 16:26] VITALS: BP 143/93
[2022-03-15] MEDS: OLANZapine 7.5 MG TABLET PO SCH (20:29)
[2022-03-15] MEDS: ZOLPIDEM TARTRATE 10 MG TABLET PO PRN (20:33)
[2022-03-16] MEDS: RisperiDONE 2 MG TABLET PO SCH ×2 (07:50→15:57)
[2022-03-16] MEDS: DOCUSATE SODIUM 100 MG CAPSULE PO SCH ×2 (07:50→15:57)
[2022-03-16] MEDS: FAMOTIDINE 20 MG TABLET PO SCH (07:50)
[2022-03-16] MEDS: LORazepam 2 MG TABLET PO PRN ×2 (07:50→13:04)
[2022-03-16 08:00] VITALS: BP 117/76
[2022-03-16] MEDS: HALOPERIDOL 5 MG TABLET PO PRN (15:57)
[2022-03-16 16:36] VITALS: BP 133/90
[2022-03-16] MEDS: ZOLPIDEM TARTRATE 10 MG TABLET PO PRN (21:18)
[2022-03-16] MEDS: OLANZapine 7.5 MG TABLET PO SCH (21:19)
[2022-03-17 09:07] VITALS: BP 133/95
[2022-03-17] MEDS: RisperiDONE 2 MG TABLET PO SCH ×2 (09:16→16:08)
[2022-03-17] MEDS: LORazepam 2 MG TABLET PO PRN ×2 (09:16→12:50)
[2022-03-17] MEDS: FAMOTIDINE 20 MG TABLET PO SCH (09:16)
[2022-03-17] MEDS: DOCUSATE SODIUM 100 MG CAPSULE PO SCH ×2 (09:16→16:08)
[2022-03-17] MEDS: HALOPERIDOL 5 MG TABLET PO PRN ×2 (12:50→18:38)
[2022-03-17 16:39] LABS: COVID AG,FIA SOURCE NASAL SWAB
[2022-03-17 16:55] VITALS: BP 109/69
[2022-03-17] MEDS: OLANZapine 7.5 MG TABLET PO SCH (20:11)
[2022-03-17] MEDS: ZOLPIDEM TARTRATE 10 MG TABLET PO PRN (20:22)
[2022-03-18] MEDS: LORazepam 2 MG TABLET PO PRN (08:24)
[2022-03-18] MEDS: DOCUSATE SODIUM 100 MG CAPSULE PO SCH ×2 (08:24→16:03)
[2022-03-18] MEDS: RisperiDONE 2 MG TABLET PO SCH ×2 (08:24→16:03)
[2022-03-18] MEDS: FAMOTIDINE 20 MG TABLET PO SCH (08:25)
[2022-03-18] MEDS: HALOPERIDOL 5 MG TABLET PO PRN (08:25)
[2022-03-18 08:54] VITALS: BP 148/96
[2022-03-18 16:47] VITALS: BP 115/73
[2022-03-18] MEDS: OLANZapine 7.5 MG TABLET PO SCH (20:05)
[2022-03-19] MEDS: HALOPERIDOL 5 MG TABLET PO PRN ×3 (00:26→16:42)
[2022-03-19] MEDS: LORazepam 2 MG TABLET PO PRN ×3 (00:26→16:42)
[2022-03-19 08:37] VITALS: BP 116/72
[2022-03-19] MEDS: DOCUSATE SODIUM 100 MG CAPSULE PO SCH ×2 (09:51→16:42)
[2022-03-19] MEDS: FAMOTIDINE 20 MG TABLET PO SCH (09:51)
[2022-03-19] MEDS: RisperiDONE 2 MG TABLET PO SCH ×2 (09:52→16:47)
[2022-03-19 16:47] VITALS: BP 136/92
[2022-03-19] MEDS: OLANZapine 7.5 MG TABLET PO SCH (20:11)
[2022-03-19] MEDS: ZOLPIDEM TARTRATE 10 MG TABLET PO PRN (20:11)
[2022-03-20] MEDS: LORazepam 2 MG TABLET PO PRN ×3 (07:58→16:35)
[2022-03-20] MEDS: RisperiDONE 2 MG TABLET PO SCH ×2 (07:58→16:34)
[2022-03-20] MEDS: DOCUSATE SODIUM 100 MG CAPSULE PO SCH ×2 (07:58→16:34)
[2022-03-20] MEDS: FAMOTIDINE 20 MG TABLET PO SCH (07:58)
[2022-03-20] MEDS: HALOPERIDOL 5 MG TABLET PO PRN ×3 (07:58→16:35)
[2022-03-20 08:02] VITALS: BP 148/91
[2022-03-20 16:04] VITALS: BP 127/69
[2022-03-20] MEDS: OLANZapine 7.5 MG TABLET PO SCH (20:00)
[2022-03-20] MEDS: ZOLPIDEM TARTRATE 10 MG TABLET PO PRN (20:10)
[2022-03-21] MEDS: LORazepam 2 MG TABLET PO PRN ×3 (08:21→23:43)
[2022-03-21] MEDS: FAMOTIDINE 20 MG TABLET PO SCH (08:21)
[2022-03-21] MEDS: HALOPERIDOL 5 MG TABLET PO PRN ×2 (08:21→12:39)
[2022-03-21] MEDS: RisperiDONE 2 MG TABLET PO SCH ×2 (08:22→16:14)
[2022-03-21] MEDS: DOCUSATE SODIUM 100 MG CAPSULE PO SCH ×2 (08:22→16:14)
[2022-03-21 13:00] VITALS: BP 120/72
[2022-03-21 16:02] VITALS: BP 108/65
[2022-03-21] MEDS: OLANZapine 7.5 MG TABLET PO SCH (20:00)
[2022-03-21] MEDS: ZOLPIDEM TARTRATE 10 MG TABLET PO PRN (23:43)
[2022-03-22 08:17] VITALS: BP 134/88
[2022-03-22] MEDS: HALOPERIDOL 5 MG TABLET PO PRN ×2 (08:50→12:54)
[2022-03-22] MEDS: FAMOTIDINE 20 MG TABLET PO SCH (08:50)
[2022-03-22] MEDS: DOCUSATE SODIUM 100 MG CAPSULE PO SCH ×2 (08:50→16:16)
[2022-03-22] MEDS: LORazepam 2 MG TABLET PO PRN ×2 (08:50→12:54)
[2022-03-22] MEDS: RisperiDONE 2 MG TABLET PO SCH ×2 (08:51→16:16)
[2022-03-22 16:12] VITALS: BP 126/88
[2022-03-22] MEDS: OLANZapine 7.5 MG TABLET PO SCH (20:00)
[2022-03-22] MEDS: ZOLPIDEM TARTRATE 10 MG TABLET PO PRN (20:00)
[2022-03-23] MEDS: DOCUSATE SODIUM 100 MG CAPSULE PO SCH ×2 (08:04→16:22)
[2022-03-23] MEDS: LORazepam 2 MG TABLET PO PRN ×3 (08:04→19:11)
[2022-03-23] MEDS: FAMOTIDINE 20 MG TABLET PO SCH (08:04)
[2022-03-23] MEDS: RisperiDONE 2 MG TABLET PO SCH ×2 (08:04→16:22)
[2022-03-23] MEDS: HALOPERIDOL 5 MG TABLET PO PRN ×3 (08:04→19:11)
[2022-03-23 08:42] VITALS: BP 125/80
[2022-03-23 16:18] VITALS: BP 124/77
[2022-03-23] MEDS: OLANZapine 7.5 MG TABLET PO SCH (20:00)
[2022-03-23] MEDS: ZOLPIDEM TARTRATE 10 MG TABLET PO PRN (20:15)
[2022-03-24 08:03] VITALS: BP 122/64
[2022-03-24] MEDS: HALOPERIDOL 5 MG TABLET PO PRN ×2 (08:35→16:33)
[2022-03-24] MEDS: LORazepam 2 MG TABLET PO PRN ×3 (08:35→19:00)
[2022-03-24] MEDS: RisperiDONE 2 MG TABLET PO SCH ×2 (08:35→16:32)
[2022-03-24] MEDS: FAMOTIDINE 20 MG TABLET PO SCH (08:35)
[2022-03-24] MEDS: DOCUSATE SODIUM 100 MG CAPSULE PO SCH ×2 (08:35→16:32)
[2022-03-24 08:44] LABS: COVID AG,FIA SOURCE NASAL SWAB
[2022-03-24 16:03] VITALS: BP 134/82
[2022-03-24] MEDS: OLANZapine 7.5 MG TABLET PO SCH (20:01)
[2022-03-24] MEDS: ZOLPIDEM TARTRATE 10 MG TABLET PO PRN (20:27)
[2022-03-25] MEDS: RisperiDONE 2 MG TABLET PO SCH ×2 (07:22→16:28)
[2022-03-25] MEDS: DOCUSATE SODIUM 100 MG CAPSULE PO SCH ×2 (07:22→16:28)
[2022-03-25] MEDS: FAMOTIDINE 20 MG TABLET PO SCH (07:23)
[2022-03-25] MEDS: LORazepam 2 MG TABLET PO PRN ×3 (07:23→16:29)
[2022-03-25 08:02] VITALS: BP 103/69
[2022-03-25] MEDS: HALOPERIDOL 5 MG TABLET PO PRN ×2 (12:04→16:29)
[2022-03-25 16:03] VITALS: BP 139/95
[2022-03-25] MEDS: OLANZapine 7.5 MG TABLET PO SCH (20:00)
[2022-03-25] MEDS: ZOLPIDEM TARTRATE 10 MG TABLET PO PRN (20:19)
[2022-03-26 08:00] VITALS: BP 115/80
[2022-03-26] MEDS: FAMOTIDINE 20 MG TABLET PO SCH (08:09)
[2022-03-26] MEDS: LORazepam 2 MG TABLET PO PRN ×3 (08:09→18:35)
[2022-03-26] MEDS: RisperiDONE 2 MG TABLET PO SCH ×2 (08:09→16:04)
[2022-03-26] MEDS: DOCUSATE SODIUM 100 MG CAPSULE PO SCH ×2 (08:09→16:04)
[2022-03-26] MEDS: HALOPERIDOL 5 MG TABLET PO PRN ×2 (12:09→16:04)
[2022-03-26 16:23] VITALS: BP 148/90
[2022-03-26] MEDS: OLANZapine 7.5 MG TABLET PO SCH (20:03)
[2022-03-27] MEDS: RisperiDONE 2 MG TABLET PO SCH ×2 (11:01→16:34)
[2022-03-27] MEDS: DOCUSATE SODIUM 100 MG CAPSULE PO SCH ×2 (11:02→16:34)
[2022-03-27] MEDS: FAMOTIDINE 20 MG TABLET PO SCH (11:02)
[2022-03-27] MEDS: HALOPERIDOL 5 MG TABLET PO PRN (14:00)
[2022-03-27 16:09] VITALS: BP 135/88
[2022-03-27] MEDS: LORazepam 2 MG TABLET PO PRN (16:50)
[2022-03-27] MEDS: OLANZapine 7.5 MG TABLET PO SCH (20:23)
[2022-03-28] MEDS: HALOPERIDOL 5 MG TABLET PO PRN ×3 (00:27→15:41)
[2022-03-28] MEDS: ZOLPIDEM TARTRATE 10 MG TABLET PO PRN ×2 (00:27→20:55)
[2022-03-28] MEDS: LORazepam 2 MG TABLET PO PRN ×2 (07:57→15:41)
[2022-03-28] MEDS: FAMOTIDINE 20 MG TABLET PO SCH (07:57)
[2022-03-28] MEDS: DOCUSATE SODIUM 100 MG CAPSULE PO SCH ×2 (07:57→16:18)
[2022-03-28] MEDS: RisperiDONE 2 MG TABLET PO SCH ×2 (07:57→16:18)
[2022-03-28 08:49] VITALS: BP 116/77
[2022-03-28 16:03] VITALS: BP 152/94
[2022-03-28] MEDS: OLANZapine 7.5 MG TABLET PO SCH (20:57)
[2022-03-29 08:03] VITALS: BP 97/64
[2022-03-29] MEDS: DOCUSATE SODIUM 100 MG CAPSULE PO SCH ×2 (09:19→16:30)
[2022-03-29] MEDS: FAMOTIDINE 20 MG TABLET PO SCH (09:19)
[2022-03-29] MEDS: RisperiDONE 2 MG TABLET PO SCH ×2 (09:19→16:31)
[2022-03-29] MEDS: LORazepam 2 MG TABLET PO PRN ×3 (09:19→19:30)
[2022-03-29] MEDS: HALOPERIDOL 5 MG TABLET PO PRN ×2 (11:22→16:31)
[2022-03-29 16:04] VITALS: BP 105/60
[2022-03-29] MEDS: OLANZapine 7.5 MG TABLET PO SCH (20:01)
[2022-03-29] MEDS: ZOLPIDEM TARTRATE 10 MG TABLET PO PRN (20:30)
[2022-03-30] MEDS: HALOPERIDOL 5 MG TABLET PO PRN ×3 (08:03→16:29)
[2022-03-30] MEDS: LORazepam 2 MG TABLET PO PRN ×3 (08:03→16:29)
[2022-03-30] MEDS: FAMOTIDINE 20 MG TABLET PO SCH (08:03)
[2022-03-30] MEDS: RisperiDONE 2 MG TABLET PO SCH ×2 (08:03→16:29)
[2022-03-30] MEDS: DOCUSATE SODIUM 100 MG CAPSULE PO SCH ×2 (08:03→16:29)
[2022-03-30 16:20] VITALS: BP 149/98
[2022-03-30 16:29] VITALS: BP 149/98
[2022-03-30] MEDS: OLANZapine 7.5 MG TABLET PO SCH (20:52)
[2022-03-31 08:04] VITALS: BP 111/71
[2022-03-31] MEDS: HALOPERIDOL 5 MG TABLET PO PRN ×3 (08:09→16:31)
[2022-03-31] MEDS: LORazepam 2 MG TABLET PO PRN ×3 (08:09→16:31)
[2022-03-31] MEDS: RisperiDONE 2 MG TABLET PO SCH ×2 (08:09→16:31)
[2022-03-31] MEDS: FAMOTIDINE 20 MG TABLET PO SCH (08:09)
[2022-03-31] MEDS: DOCUSATE SODIUM 100 MG CAPSULE PO SCH ×2 (08:09→16:31)
[2022-03-31 10:53] LABS: COVID AG,FIA SOURCE NASOPHARYNGEAL
[2022-03-31 16:05] VITALS: BP 145/91
[2022-03-31 16:31] VITALS: BP 145/91
[2022-03-31] MEDS: OLANZapine 7.5 MG TABLET PO SCH (20:13)
[2022-04-01] MEDS: DOCUSATE SODIUM 100 MG CAPSULE PO SCH ×2 (08:03→16:13)
[2022-04-01] MEDS: FAMOTIDINE 20 MG TABLET PO SCH (08:03)
[2022-04-01] MEDS: HALOPERIDOL 5 MG TABLET PO PRN ×2 (08:03→16:13)
[2022-04-01] MEDS: LORazepam 2 MG TABLET PO PRN ×2 (08:03→16:13)
[2022-04-01] MEDS: RisperiDONE 2 MG TABLET PO SCH ×2 (08:06→16:13)
[2022-04-01 08:42] VITALS: BP 136/86
[2022-04-01] MEDS: NICOTINE 14 MG/24 HOUR PATCH TD PRN (09:32)
[2022-04-01 16:20] VITALS: BP 130/79
[2022-04-01] MEDS: OLANZapine 7.5 MG TABLET PO SCH (20:01)
[2022-04-01] MEDS: ZOLPIDEM TARTRATE 10 MG TABLET PO PRN (20:22)
[2022-04-02] MEDS: HALOPERIDOL 5 MG TABLET PO PRN ×2 (07:36→16:05)
[2022-04-02] MEDS: LORazepam 2 MG TABLET PO PRN ×2 (07:36→16:05)
[2022-04-02] MEDS: DOCUSATE SODIUM 100 MG CAPSULE PO SCH ×2 (07:36→16:05)
[2022-04-02] MEDS: FAMOTIDINE 20 MG TABLET PO SCH (07:36)
[2022-04-02] MEDS: RisperiDONE 2 MG TABLET PO SCH ×2 (07:57→16:05)
[2022-04-02 08:04] VITALS: BP 155/99
[2022-04-02 16:05] VITALS: BP 105/68
[2022-04-02] MEDS: OLANZapine 7.5 MG TABLET PO SCH (20:07)
[2022-04-02] MEDS: ZOLPIDEM TARTRATE 10 MG TABLET PO PRN (21:09)
[2022-04-03 08:01] VITALS: BP 135/97
[2022-04-03] MEDS: RisperiDONE 2 MG TABLET PO SCH ×2 (08:38→16:01)
[2022-04-03] MEDS: LORazepam 2 MG TABLET PO PRN ×2 (08:39→16:35)
[2022-04-03] MEDS: FAMOTIDINE 20 MG TABLET PO SCH (08:39)
[2022-04-03] MEDS: DOCUSATE SODIUM 100 MG CAPSULE PO SCH ×2 (08:39→16:01)
[2022-04-03] MEDS: HALOPERIDOL 5 MG TABLET PO PRN ×2 (08:39→16:35)
[2022-04-03 16:50] VITALS: BP 134/83
[2022-04-03] MEDS: OLANZapine 7.5 MG TABLET PO SCH (20:00)
[2022-04-04 08:03] VITALS: BP 121/82
[2022-04-04] MEDS: DOCUSATE SODIUM 100 MG CAPSULE PO SCH ×2 (08:12→16:04)
[2022-04-04] MEDS: RisperiDONE 2 MG TABLET PO SCH ×2 (08:12→16:04)
[2022-04-04] MEDS: FAMOTIDINE 20 MG TABLET PO SCH (08:12)
[2022-04-04] MEDS: LORazepam 2 MG TABLET PO PRN (08:12)
[2022-04-04] MEDS: HALOPERIDOL 5 MG TABLET PO PRN (08:12)
[2022-04-04 16:01] VITALS: BP 142/88
[2022-04-04] MEDS: OLANZapine 7.5 MG TABLET PO SCH (20:22)
[2022-04-05 01:15] VITALS: BP 176/89
[2022-04-05] MEDS: LORazepam 2 MG TABLET PO PRN ×3 (01:17→18:07)
[2022-04-05] MEDS: ZOLPIDEM TARTRATE 10 MG TABLET PO PRN (01:17)
[2022-04-05] MEDS: DOCUSATE SODIUM 100 MG CAPSULE PO SCH ×2 (07:56→16:35)
[2022-04-05] MEDS: RisperiDONE 2 MG TABLET PO SCH ×2 (07:56→16:35)
[2022-04-05] MEDS: FAMOTIDINE 20 MG TABLET PO SCH (07:56)
[2022-04-05] MEDS: HALOPERIDOL 5 MG TABLET PO PRN ×2 (07:56→18:07)
[2022-04-05 08:00] VITALS: BP 120/76
[2022-04-05] MEDS ORDERED: LORazepam 2 MG/ML VIAL ONE (09:04)
[2022-04-05] MEDS: LORazepam 2 MG/ML VIAL IM ONE ×2 (09:30→09:39)
[2022-04-05] MEDS: DiphenhydrAMINE HCL 50 MG/ML VIAL IM ONE ×2 (09:30→09:39)
[2022-04-05] MEDS: HALOPERIDOL LACTATE 5 MG/ML VIAL IM ONE ×2 (09:33→09:40)
[2022-04-05 16:59] VITALS: BP 117/81
[2022-04-05] MEDS: OLANZapine 7.5 MG TABLET PO SCH (20:08)
[2022-04-06 08:00] VITALS: BP 128/85
[2022-04-06] MEDS: DOCUSATE SODIUM 100 MG CAPSULE PO SCH ×2 (08:02→16:27)
[2022-04-06] MEDS: FAMOTIDINE 20 MG TABLET PO SCH (08:02)
[2022-04-06] MEDS: RisperiDONE 2 MG TABLET PO SCH ×2 (08:02→16:26)
[2022-04-06] MEDS: HALOPERIDOL 5 MG TABLET PO PRN ×2 (08:02→16:27)
[2022-04-06] MEDS: LORazepam 2 MG TABLET PO PRN ×2 (08:02→16:27)
[2022-04-06 16:00] VITALS: BP 111/78
[2022-04-06] MEDS: OLANZapine 7.5 MG TABLET PO SCH (20:07)
[2022-04-07 06:21] LABS: COVID AG,FIA SOURCE NASAL SWAB
[2022-04-07] MEDS: HALOPERIDOL 5 MG TABLET PO PRN ×3 (08:09→21:00)
[2022-04-07] MEDS: RisperiDONE 2 MG TABLET PO SCH ×2 (08:09→16:17)
[2022-04-07] MEDS: DOCUSATE SODIUM 100 MG CAPSULE PO SCH ×2 (08:09→16:18)
[2022-04-07] MEDS: FAMOTIDINE 20 MG TABLET PO SCH (08:09)
[2022-04-07 08:36] VITALS: BP 110/84
[2022-04-07 16:40] VITALS: BP 115/88
[2022-04-07] MEDS: OLANZapine 7.5 MG TABLET PO SCH (20:07)
[2022-04-08] MEDS: HALOPERIDOL 5 MG TABLET PO PRN ×2 (07:30→13:31)
[2022-04-08] MEDS: RisperiDONE 2 MG TABLET PO SCH ×2 (07:30→16:11)
[2022-04-08] MEDS: DOCUSATE SODIUM 100 MG CAPSULE PO SCH ×2 (07:30→16:11)
[2022-04-08] MEDS: FAMOTIDINE 20 MG TABLET PO SCH (07:30)
[2022-04-08 08:01] VITALS: BP 114/72
[2022-04-08] MEDS ORDERED: ZOLPIDEM TARTRATE 10 MG TABLET PO PRN (10:45)
[2022-04-08] MEDS: LORazepam 2 MG TABLET PO PRN (13:31)
[2022-04-08 16:21] VITALS: BP 137/82
[2022-04-08] MEDS: OLANZapine 7.5 MG TABLET PO SCH (21:09)
[2022-04-09] MEDS: DOCUSATE SODIUM 100 MG CAPSULE PO SCH ×2 (07:50→16:52)
[2022-04-09] MEDS: RisperiDONE 2 MG TABLET PO SCH ×2 (07:51→16:52)
[2022-04-09] MEDS: FAMOTIDINE 20 MG TABLET PO SCH (07:51)
[2022-04-09] MEDS: LORazepam 2 MG TABLET PO PRN ×2 (07:51→12:34)
[2022-04-09 08:03] VITALS: BP 118/82
[2022-04-09] MEDS: HALOPERIDOL 5 MG TABLET PO PRN (12:33)
[2022-04-09 16:13] VITALS: BP 121/77
[2022-04-09] MEDS: OLANZapine 7.5 MG TABLET PO SCH (20:49)
[2022-04-10] MEDS: FAMOTIDINE 20 MG TABLET PO SCH (07:59)
[2022-04-10] MEDS: LORazepam 2 MG TABLET PO PRN ×2 (07:59→12:15)
[2022-04-10] MEDS: DOCUSATE SODIUM 100 MG CAPSULE PO SCH ×2 (07:59→16:14)
[2022-04-10] MEDS: HALOPERIDOL 5 MG TABLET PO PRN ×2 (08:00→12:15)
[2022-04-10 08:13] VITALS: BP 160/92
[2022-04-10] MEDS: RisperiDONE 2 MG TABLET PO SCH ×2 (08:35→16:14)
[2022-04-10 16:05] VITALS: BP 125/85
[2022-04-10] MEDS: OLANZapine 7.5 MG TABLET PO SCH (20:06)
[2022-04-11 08:00] VITALS: BP 115/74
[2022-04-11] MEDS: RisperiDONE 2 MG TABLET PO SCH ×2 (08:34→16:14)
[2022-04-11] MEDS: LORazepam 2 MG TABLET PO PRN ×2 (08:34→16:17)
[2022-04-11] MEDS: DOCUSATE SODIUM 100 MG CAPSULE PO SCH ×2 (08:35→16:14)
[2022-04-11] MEDS: HALOPERIDOL 5 MG TABLET PO PRN ×2 (08:35→16:17)
[2022-04-11] MEDS: FAMOTIDINE 20 MG TABLET PO SCH (08:35)
[2022-04-11 16:31] VITALS: BP 123/81
[2022-04-11] MEDS: OLANZapine 7.5 MG TABLET PO SCH (20:10)
[2022-04-12] MEDS: FAMOTIDINE 20 MG TABLET PO SCH (09:00)
[2022-04-12] MEDS: LORazepam 2 MG TABLET PO PRN ×2 (09:00→13:14)
[2022-04-12] MEDS: RisperiDONE 2 MG TABLET PO SCH ×2 (09:00→16:17)
[2022-04-12] MEDS: DOCUSATE SODIUM 100 MG CAPSULE PO SCH ×2 (09:00→16:17)
[2022-04-12 09:10] VITALS: BP 121/78
[2022-04-12] MEDS: HALOPERIDOL 5 MG TABLET PO PRN (13:14)
[2022-04-12 16:31] VITALS: BP 148/92
[2022-04-12 20:00] VITALS: BP 129/80
[2022-04-12] MEDS: OLANZapine 7.5 MG TABLET PO SCH (20:27)
[2022-04-13] MEDS: RisperiDONE 2 MG TABLET PO SCH (07:55)
[2022-04-13] MEDS: FAMOTIDINE 20 MG TABLET PO SCH (07:55)
[2022-04-13] MEDS: DOCUSATE SODIUM 100 MG CAPSULE PO SCH (07:55)
[2022-04-13] MEDS: LORazepam 2 MG TABLET PO PRN (07:55)
[2022-04-13] MEDS: HALOPERIDOL 5 MG TABLET PO PRN (07:55)
[2022-04-13 08:30] VITALS: BP 142/82
[2022-04-13] MEDS ORDERED: RISP2TAB86 PO (09:26)
[2022-04-13] MEDS ORDERED: DOCU-385 PO ×2 (09:43→09:45)
== END 2022-04-13 13:00 | disposition home or self-care (01) | DRG 750 ==
LOC: 3EC 17:15
PROVIDERS: ADMIT Psychiatry & Neurology Psychiatry; ATTEND Psychiatry & Neurology Psychiatry
DX: F20.9 Schizophrenia, unspecified (principal); M62.82 Rhabdomyolysis; E87.6 Hypokalemia; F10.10 Alcohol abuse, uncomplicated; F15.10 Other stimulant abuse, uncomplicated; Y90.9 Presence of alcohol in blood, level not specified; Z20.822 Contact with and (suspected) exposure to COVID-19; R00.0 Tachycardia, unspecified; F19.10 Other psychoactive substance abuse, uncomplicated; K59.00 Constipation, unspecified; Z88.8 Allergy status to other drugs, medicaments and biological substances; Z91.014 Allergy to mammalian meats; Z71.51 Drug abuse counseling and surveillance of drug abuser; Z71.41 Alcohol abuse counseling and surveillance of alcoholic
CPT/HCPCS: 80053; 87081; J1200; J1630; J2060; Q0162